=== PATIENT | female | born 1960 | race Caucasian/White ===

== ENCOUNTER → 2024-04-04 | Outpatient (CLI) | payer OTHER, SELFPAY ==
[2024-04-05 10:13] LABS: BVAG Candida Negative (Negative); Bacterial Vaginosis Markers Negative (Negative); Candida glabrata Positive (Negative); Candida krusei PCR Negative (Negative); Trichomonas Negative (Negative)
== END | disposition home or self-care (01) ==
LOC: SLDO 15:19
PROVIDERS: PCP Specialist; Referring Provider Specialist; Visit Provider Specialist
DX: B37.89 Other sites of candidiasis (principal); N76.0 Acute vaginitis; A59.01 Trichomonal vulvovaginitis
CPT/HCPCS: 81514

== ENCOUNTER 2024-04-10 17:57 | Emergency (ER) | payer OTHER, SELFPAY ==
[2024-04-10 17:58] VITALS: BMI 29.9
[2024-04-10 18:10] VITALS: BP 143/92; PULSE 78; RESP 18; TEMP 36.4; O2SAT 98; BMI 29.9
--- NOTE | 2024-04-10 18:23 | XR_ITS ---
Examination: PA lateral chest 2 views Technique: Upright PA lateral chest 2 views Exam date and time: April 10, 2024 1850 hrs. Comparison March 04, 2020 Indications: Coughing dizziness beginning one week ago. Findings: Normal heart size Lungs are clear. The osseous structures are intact Impression: No active disease
--- NOTE | 2024-04-10 18:24 | PD.EDRME ---
Rapid Medical Screening Exam RME Arrival date/time: 04/10/24 17:57 64-year-old female past medical history of hypertension presents emergency department complaining of bodyaches, fever, headache, and chills for 2 weeks. Chief Complaint: Flu Like Symptoms Time Seen by Provider: 04/10/24 18:06 Vital signs: Vital Signs Temperature 97.6 F 04/10/24 18:10 Pulse Rate 78 04/10/24 18:10 Respiratory Rate 18 04/10/24 18:10 Blood Pressure 143/92 H 04/10/24 18:10 Pulse Oximetry (%) 98 04/10/24 18:10 Oxygen Delivery Method Room Air 04/10/24 18:10 Vital signs reviewed by provider: Yes
[2024-04-10] MEDS: ACETAMINOPHEN 500 MG TABLET 1000 MG PO (18:32)
--- NOTE | 2024-04-10 18:59 | PD.EDURI ---
Upper Respiratory Inf. RME/HPI General Chief Complaint: Flu Like Symptoms Stated Complaint: BODYACHES, FEVER, CHILLS, SEVERE HEADACHE Time Seen by Provider: 04/10/24 18:06 Source: patient Arrival date/time: 04/10/24 17:57 64-year-old female past medical history of hypertension presents emergency department complaining of bodyaches, fever, headache, and chills for 2 weeks. Patient reports has completed 2 rounds of antibiotics for sinus infection with no improvement. Mode of arrival: ambulatory Limitations: no limitations RME / HPI RME / HPI Narrative: 04/10/24 17:57 64-year-old female past medical history of hypertension presents emergency department complaining of bodyaches, fever, headache, and chills for 2 weeks. Related Data Home Medications ?Medication ?Instructions ?Recorded ?Confirmed atorvastatin 10 mg tablet (Lipitor) 10 mg PO HS #0 tabs 05/21/16 12/23/20 metformin 500 mg tablet 500 mg PO BID 11/21/18 12/23/20 aripiprazole 15 mg tablet 7.5 mg PO QDAY 12/04/19 12/23/20 acyclovir 400 mg tablet 400 mg PO QDAY 10/23/20 12/23/20 amlodipine 5 mg tablet 5 mg PO QDAY 10/23/20 12/23/20 levothyroxine 112 mcg capsule 112 mcg PO QDAY 10/23/20 12/23/20 metoprolol succinate 50 mg 50 mg PO QDAY 10/23/20 12/23/20 tablet,extended release 24 hr oxybutynin chloride 10 mg 10 mg PO QDAY 10/23/20 12/23/20 tablet,extended release 24 hr topiramate 100 mg tablet 100 mg PO QDAY 10/23/20 12/23/20 Previous Rx's ?Medication ?Instructions ?Recorded metoclopramide HCl 10 mg tablet 10 mg PO Q6H PRN nausea and 04/11/20 (Reglan) vomiting #20 tabs meclizine 50 mg tablet (Antivert) 50 mg PO BID PRN dizziness #20 tabs 11/04/22 acetaminophen 500 mg capsule 500 mg PO Q6H PRN pain #30 caps 04/10/24 ibuprofen 600 mg tablet 600 mg PO Q8H PRN pain #20 tabs 04/10/24 Allergies Allergy/AdvReac Type Severity Reaction Status Date / Time codeine Allergy Severe HIVES Verified 04/10/24 18:01 Penicillins Allergy Severe HIVES Verified 04/10/24 18:01 Review of Systems Review of Systems Systems Reviewed: All systems reviewed, normal except as documented Constitutional Constitutional: Reports system reviewed and no additional complaints, except as documented, Reports body ache(s), Reports chills, Reports fever(s) and Reports headache(s) Eyes Eyes: Reports system reviewed and no additional complaints, except as documented and Denies change in vision ENT Ears, Nose, Mouth, and Throat: Reports system reviewed and no additional complaints, except as documented, Denies disequilibrium, Denies dizziness, Reports headache(s), Denies sore throat and Denies vertigo Cardiovascular Cardiovascular: Reports system reviewed and no additional complaints, except as documented, Denies chest pain and Denies dyspnea Respiratory Respiratory: Reports system reviewed and no additional complaints, except as documented, Denies chest congestion, Denies cough and Denies dyspnea Gastrointestinal Gastrointestinal: Reports system reviewed and no additional complaints, except as documented, Denies abdominal pain, Denies nausea and Denies vomiting Musculoskeletal Musculoskeletal: Reports system reviewed and no additional complaints, except as documented, Denies abnormal gait and Denies arthralgias Integumentary/Breasts Skin/Breast: Reports system reviewed and no additional complaints, except as documented, Denies erythema, Denies rash and Denies wounds Neurologic Neurologic: Reports system reviewed and no additional complaints, except as documented, Denies abnormal gait, Denies disequilibrium, Denies dizziness, Reports headache(s) and Denies vertigo ED Exam General Limitations: Present no limitations General appearance: Present alert and in no apparent distress Head Head exam: Present atraumatic Eye Eye exam: Present normal appearance, PERRL and EOMI ENT ENT exam: Present normal exam, normal oropharynx and mucous membranes moist Neck Neck exam: Present normal inspection, full ROM and trachea midline Chest Chest inspection: Present normal inspection and symmetric chest wall rise Respiratory Respiratory exam: Present normal lung sounds bilaterally Cardiovascular Cardiovascular exam: Present regular rate, normal rhythm and normal heart sounds Abdominal Exam Abdominal exam: Present soft and normal bowel sounds Extremities Exam Extremities exam: Present normal inspection and full ROM Back Exam Back exam: Present normal inspection and full ROM Neurological Exam Neurological exam: Present alert, oriented X3 and CN II-XII intact Psychiatric Psychiatric exam: Present normal affect and normal mood Skin Skin exam: Present warm, dry, intact and normal color Course Quality Measures none Orders Category Date Time Status Bedside COVID-19 Antigen Test NOW Care 04/10/24 18:23 Active Bedside Influenza A&B Antigen Test NOW Care 04/10/24 18:23 Completed XR chest 2V Stat Exams 04/10/24 18:23 Completed Acetaminophen Tab [Tylenol ES Tab] Med 04/10/24 18:24 Discontinued 1,000 mg PO X1 ONE Vital Signs Vital signs: Vital Signs Temperature 97.6 F 04/10/24 18:10 Pulse Rate 78 04/10/24 18:10 Respiratory Rate 18 04/10/24 18:10 Blood Pressure 143/92 H 04/10/24 18:10 Pulse Oximetry (%) 98 04/10/24 18:10 Oxygen Delivery Method Room Air 04/10/24 18:10 98% room air within normal limits Upper Respiratory Infection MDM Narrative MDM Narrative:: 64-year-old female past medical history of hypertension presents emergency department complaining of bodyaches, fever, headache, and chills for 2 weeks. Patient reports has completed 2 rounds of antibiotics for sinus infection with no improvement. Chest x-ray was unremarkable for any pneumonic infiltrates. Patient not appear to be in any respiratory distress and speaking in full sentences. Patient appears nontoxic and is hemodynamically stable. Influenza A&B positive which is likely cause of symptoms. Patient data External records reviewed:: [facility] previous records Clinical information provided by:: patient Social determinants that could affect healthcare access:: none Patient has the following chronic illnesses:: See chart How is presenting disease/condition affected by chronic disease/condition?: uneffected by Evaluation data The following diagnostics were reviewed and interpreted by me:: lab results and radiology exam(s) Lab and/or radiology exams considered but not ordered:: Ordered Interpretation Summary: Interpreted by me Medications / Prescriptions Medications or Prescriptions considered but not ordered:: Ordered Medication administrations:: Medication Administration History Discontinued Medications Acetaminophen (Acetaminophen 500 Mg Tablet) 1,000 mg PO X1 ONE Stop: 04/10/24 18:25 Last Admin: 04/10/24 18:32 Dose: 1,000 mg Documented By: given Consultations Consultation(s) initiated? (list below): No Diagnosis Upper Respiratory Differential Diagnosis: upper respiratory infection, otitis media, sinusitis, viral infection, bronchitis, influenza and pharyngitis Most likely diagnosis given after review of the tests above:: Influenza Admission Indicated Admission indicated?: not indicated Admission Request Was there a request for admission?: No Disposition Plan Disposition Plan: Discharge Discharge Attestation Discharge Attestation: The patient and all family members were given an opportunity to ask questions and understood the discharge instructions. Discharge instructions specifically effects, indications for sooner follow up or return to the emergency department, and the expected course of current diagnosis. Patient condition: Stable Discharge Plan Plan Patient Disposition: HOME (Self Care) Disposition Comment: Stable Prescriptions/Referrals Prescriptions/Med Rec: New ibuprofen 600 mg tablet 600 mg PO Q8H PRN (Reason: pain) Qty: 20 0RF acetaminophen 500 mg capsule 500 mg PO Q6H PRN (Reason: pain) Qty: 30 0RF No Action metoprolol succinate 50 mg tablet extended release 24 hr 50 mg PO QDAY acyclovir 400 mg tablet 400 mg PO QDAY levothyroxine 112 mcg capsule 112 mcg PO QDAY topiramate 100 mg tablet 100 mg PO QDAY amlodipine 5 mg tablet 5 mg PO QDAY oxybutynin chloride 10 mg tablet extended release 24hr 10 mg PO QDAY atorvastatin [Lipitor] 10 MG tablet 10 mg PO HS Qty: 0 metformin 500 mg Tablet 500 mg PO BID aripiprazole 15 mg tablet 7.5 mg PO QDAY metoclopramide HCl [Reglan] 10 mg tablet 10 mg PO Q6H PRN (Reason: nausea and vomiting) Qty: 20 0RF meclizine [Antivert] 50 mg tablet 50 mg PO BID PRN (Reason: dizziness) Qty: 20 0RF Referrals: Cameron Napier MD [Primary Care Provider] - In 1 week Problem List Clinical Impression: Influenza Patient/Caregiver Discharge Instructions Discharge Activity: activity as tolerated Education Materials: The Flu (Influenza), ED Influenza (Adult) Additional Instructions: Drink plenty of fluids and get plenty of rest. Take Tylenol or ibuprofen as needed for fever or pain. Follow-up with primary care provider in 2 to 3 days. Return to emergency department for any worsening symptoms or as needed. Print Language: Upper Sorbian Stand Alone Forms: Dana Award Info., Patient Portal Info Letter PA/BLEACH SUPERVISOR Supervising Physician PA/BLEACH SUPERVISOR Supervising Physician: Dr. Padilla
== END 2024-04-10 19:42 | disposition home or self-care (01) ==
PROVIDERS: Emergency Provider Emergency Medicine; PCP Internal Medicine
DX: J10.1 Influenza due to other identified influenza virus with other respiratory manifestations (principal); I10 Essential (primary) hypertension; Z88.5 Allergy status to narcotic agent
CPT/HCPCS: 71046; 87400; 87811; 99283; A9270

== ENCOUNTER 2024-04-12 23:48 | Emergency (ER) | payer OTHER, SELFPAY ==
[2024-04-12 23:49] VITALS: BMI 29.9
[2024-04-12 23:55] VITALS: BP 143/87; PULSE 74; RESP 19; TEMP 36.4; O2SAT 96
[2024-04-13] MEDS: HYDROcodone/APAP 5/325 TABLET 1 TAB PO (00:59)
[2024-04-13 01:02] LABS: Basophils % (Auto) 1 % (0-2.5); Eosinophils # (Auto) 0.1 Thou/mm3 (0.0-0.5); Eosinophils % (Auto) 1 % (0-10); Hematocrit 37.5 % (36.0-46.0); Hemoglobin 12.9 g/dL (12.0-16.0); Immature Granulocytes % (Auto) 0 % (0-0); Immature Granulocytes Auto 0.02 Thou/mm3 (0.00-0.00); Lymphocytes # (Auto) 2.2 Thou/mm3 (1.0-4.8); Lymphocytes % (Auto) 25 % (10-50); Mean Corpuscular HGB Conc 34.4 g/dl (31.0-37.0); Mean Corpuscular Hemoglobin 30.6 pg (25.0-35.0); Mean Corpuscular Volume 89 fL (80-100); Monocytes # (Auto) 0.4 Thou/mm3 (0.0-0.8); Monocytes % (Auto) 5 % (0-12); Neutrophils # (Auto) 5.9 Thou/mm3 (1.8-7.7); Neutrophils % (Auto) 68 % (37-80); Nucleated Red Blood Cell % 0 /100 WBC (0); Platelet Count 195 Thou/mm3 (140-440); RDW Standard Deviation 40.5 fL (36.4-46.3); Red Blood Count 4.22 Miln/mm3 (4.00-5.20); White Blood Count 8.7 Thou/mm3 (3.6-11.0)
[2024-04-13 01:18] LABS: Alanine Aminotransferase 10 U/L (10-49); Albumin, Serum 4.4 gm/dL (3.4-4.8); Albumin/Globulin Ratio 2.2 (1.2-2.2); Alkaline Phosphatase 93 U/L (46-116); Anion Gap 11 (7-16); Aspartate Amino Transferase 16 U/L (0-34); BUN/Creatinine Ratio 19 Ratio (12-20); Bilirubin,Total 0.5 mg/dL (0.3-1.2); Blood Urea Nitrogen 17 mg/dL (9-23); Calcium 9.1 mg/dL (8.3-10.6); Calcium (Corrected) 9.1 mg/dL (8.5-10.1); Carbon Dioxide 21.6 mMol/L (20.0-31.0); Chloride 104 mMol/L (98-107); Creatinine (Component) 0.9 mg/dL (0.6-1.3); Estimated Creatinine Clearance 65.8 mL/min (>60); Glucose 94 mg/dL (74-106); Osmolality,Calculated 275 (275-295); Potassium 3.9 mMol/L (3.4-5.1); Sodium 137 mMol/L (136-145); Total Protein 6.4 gm/dL (5.7-8.2); Troponin I < 0.002 ng/mL (0.0-0.045); eGFR > 60 See Note
--- NOTE | 2024-04-13 02:58 | PD.EDURI ---
Upper Respiratory Inf. RME/HPI General Chief Complaint: Flu Like Symptoms Stated Complaint: FLU +A&B, HIGH BLOOD PRESSURE Time Seen by Provider: 04/13/24 00:42 Arrival date/time: 04/12/24 23:48 64F with history of bipolar disorder, HTN, and hypothyroidism presents to ED with elevated BP readings and CP. Patient was here yesterday and tested positive for flu A/B. CXR was normal. Patient outside the window for Tamiflu. Limitations: no limitations Related Data Home Medications ?Medication ?Instructions ?Recorded ?Confirmed atorvastatin 10 mg tablet (Lipitor) 10 mg PO HS #0 tabs 05/21/16 12/23/20 metformin 500 mg tablet 500 mg PO BID 11/21/18 12/23/20 aripiprazole 15 mg tablet 7.5 mg PO QDAY 12/04/19 12/23/20 acyclovir 400 mg tablet 400 mg PO QDAY 10/23/20 12/23/20 amlodipine 5 mg tablet 5 mg PO QDAY 10/23/20 12/23/20 levothyroxine 112 mcg capsule 112 mcg PO QDAY 10/23/20 12/23/20 metoprolol succinate 50 mg 50 mg PO QDAY 10/23/20 12/23/20 tablet,extended release 24 hr oxybutynin chloride 10 mg 10 mg PO QDAY 10/23/20 12/23/20 tablet,extended release 24 hr topiramate 100 mg tablet 100 mg PO QDAY 10/23/20 12/23/20 Previous Rx's ?Medication ?Instructions ?Recorded metoclopramide HCl 10 mg tablet 10 mg PO Q6H PRN nausea and 04/11/20 (Reglan) vomiting #20 tabs meclizine 50 mg tablet (Antivert) 50 mg PO BID PRN dizziness #20 tabs 11/04/22 acetaminophen 500 mg capsule 500 mg PO Q6H PRN pain #30 caps 04/10/24 ibuprofen 600 mg tablet 600 mg PO Q8H PRN pain #20 tabs 04/10/24 Allergies Allergy/AdvReac Type Severity Reaction Status Date / Time codeine Allergy Severe HIVES Verified 04/10/24 18:01 Penicillins Allergy Severe HIVES Verified 04/10/24 18:01 Review of Systems Review of Systems Systems Reviewed: All systems reviewed, normal except as documented Constitutional Constitutional: Reports system reviewed and no additional complaints, except as documented, Denies fever(s) and Denies headache(s) ENT Ears, Nose, Mouth, and Throat: Denies disequilibrium and Denies headache(s) Cardiovascular Cardiovascular: Reports system reviewed and no additional complaints, except as documented, Reports as per HPI, Reports chest pain and Denies dyspnea Respiratory Respiratory: Reports system reviewed and no additional complaints, except as documented, Denies cough and Denies dyspnea Gastrointestinal Gastrointestinal: Reports system reviewed and no additional complaints, except as documented, Denies abdominal pain, Denies nausea and Denies vomiting Neurologic Neurologic: Reports system reviewed and no additional complaints, except as documented, Denies confusion, Denies disequilibrium and Denies headache(s) Psychiatric Psychiatric: Denies confusion Past Medical History Past Medical History NEUROLOGIC: Negative Neurological Disorders or Seizures CARDIAC: Positive Cardiac Disorders, Hypertension and Hypotension; Negative Congestive Heart Failure RESPIRATORY: Negative Chronic Obstructive Pulmonary Disease (COPD) or Asthma GASTROINTESTINAL: Positive Gastrointestinal Disorders and Gastrointestinal Bleed GENITOURINARY: Negative Genitourinary Disorders or Renal Disease MUSCULOSKELETAL: Negative Musculoskeletal Disorders ENDOCRINE: Positive Endocrine Disorders and Hypothyroidism; Negative Diabetes Mellitus Type 1 or Diabetes Mellitus Type 2 HEMATOLOGIC: Negative Blood Disorders or Sickle Cell Disease PSYCHO/SOCIAL: Positive Bipolar Disorder, Depression and Anxiety OTHER HISTORY: Positive Chicken Pox, Measles, Mumps and Rubella (Citizen Of [place] Measles); Negative Blood Transfusions, Blood Transfusion Reaction, Anesthesia Reactions or Cancer Family History FAMILY HISTORY: Positive Family Cancer; Negative Family Neurologic Problems, Family Psychiatric Problems, Family Respiratory Disorders, Family Cardiac Disorders, Family Gastrointestinal Problems, Family Surgery or Family Anesthesia Reaction Surgical History SURGICAL: Positive Ear Surgery, Eye Surgery, Nose Surgery, Gastric Bypass Surgery, Hysterectomy and Section Social History SMOKING STATUS: Never smoker SUBSTANCE USE: does not use ED Exam General Limitations: Present no limitations General appearance: Present alert and in no apparent distress Head Head exam: Present atraumatic Eye Eye exam: Present normal appearance, PERRL and EOMI ENT ENT exam: Present normal exam, normal oropharynx and mucous membranes moist Neck Neck exam: Present normal inspection, full ROM and trachea midline Chest Chest inspection: Present normal inspection and symmetric chest wall rise Respiratory Respiratory exam: Present normal lung sounds bilaterally Cardiovascular Cardiovascular exam: Present regular rate, normal rhythm and normal heart sounds Abdominal Exam Abdominal exam: Present soft and normal bowel sounds Extremities Exam Extremities exam: Present normal inspection and full ROM Back Exam Back exam: Present normal inspection and full ROM Neurological Exam Neurological exam: Present alert, oriented X3 and CN II-XII intact Psychiatric Psychiatric exam: Present normal affect and normal mood Skin Skin exam: Present warm, dry, intact and normal color Course Quality Measures none Orders Category Date Time Status EKG (ED ONLY) *Do not use* NOW Care 04/12/24 23:52 Completed EKG (ED Only) Stat Exams 04/12/24 23:51 Ordered CBC Stat Lab 04/13/24 00:51 Completed CMP [Comprehensive Metabolic Panel] Stat Lab 04/13/24 00:51 Completed Troponin I Stat Lab 04/13/24 00:51 Completed HYDROcodone*/APAP 5/325 [[place] 5/325] Med 04/13/24 00:43 Discontinued 1 tab PO X1 ONE Vital Signs Vital signs: Vital Signs Temperature 97.6 F 04/12/24 23:55 Pulse Rate 74 04/12/24 23:55 Respiratory Rate 19 04/12/24 23:55 Blood Pressure 143/87 H 04/12/24 23:55 Pulse Oximetry (%) 96 04/12/24 23:55 Oxygen Delivery Method Room Air 04/12/24 23:55 O2 at 96% on RA and WNLs Upper Respiratory Infection MDM Narrative MDM Narrative:: 64F with history of bipolar disorder, HTN, and hypothyroidism presents to ED with elevated BP readings and CP. Patient was here yesterday and tested positive for flu A/B. CXR was normal. Patient outside the window for Tamiflu. Physical exam reveals normal pupil response and EOM. Clear ENT and lungs. RRR. Patient is afebrile, calm, and alert. EKG is NSR. Normal trop. CMP and CBC unremarkable. Meds and student loan counselor given. Patient data External records reviewed:: [facility] previous records Clinical information provided by:: patient Social determinants that could affect healthcare access:: mental health Patient has the following chronic illnesses:: bipolar disorder, HTN, and hypothyroidism How is presenting disease/condition affected by chronic disease/condition?: exacerbated by Evaluation data The following diagnostics were reviewed and interpreted by me:: lab results and EKG tracing(s) Lab and/or radiology exams considered but not ordered:: ordered Interpretation Summary: above Medications / Prescriptions Medications or Prescriptions considered but not ordered:: ordered Medication administrations:: Medication Administration History Discontinued Medications Hydrocodone Bitart/Acetaminophen (Hydrocodone/[place] 5/325 Tablet) 1 tab PO X1 ONE Stop: 04/13/24 00:44 Last Admin: 04/13/24 00:59 Dose: 1 tab Documented By: above Consultations Consultation(s) initiated? (list below): No Diagnosis Upper Respiratory Differential Diagnosis: upper respiratory infection, croup, otitis media, sinusitis, viral infection, bronchitis, influenza, pharyngitis and other (ACS, PE) Most likely diagnosis given after review of the tests above:: flu Admission Indicated Admission indicated?: not indicated Admission Request Was there a request for admission?: No Disposition Plan Disposition Plan: Discharge Discharge Attestation Discharge Attestation: The patient and all family members were given an opportunity to ask questions and understood the discharge instructions. Discharge instructions specifically effects, indications for sooner follow up or return to the emergency department, and the expected course of current diagnosis. Patient condition: Stable Discharge Plan Plan Patient Disposition: HOME (Self Care) Disposition Comment: Stable Prescriptions/Referrals Prescriptions/Med Rec: No Action metoprolol succinate 50 mg tablet extended release 24 hr 50 mg PO QDAY acyclovir 400 mg tablet 400 mg PO QDAY levothyroxine 112 mcg capsule 112 mcg PO QDAY topiramate 100 mg tablet 100 mg PO QDAY amlodipine 5 mg tablet 5 mg PO QDAY oxybutynin chloride 10 mg tablet extended release 24hr 10 mg PO QDAY atorvastatin [Lipitor] 10 MG tablet 10 mg PO HS Qty: 0 metformin 500 mg Tablet 500 mg PO BID aripiprazole 15 mg tablet 7.5 mg PO QDAY metoclopramide HCl [Reglan] 10 mg tablet 10 mg PO Q6H PRN (Reason: nausea and vomiting) Qty: 20 0RF meclizine [Antivert] 50 mg tablet 50 mg PO BID PRN (Reason: dizziness) Qty: 20 0RF ibuprofen 600 mg tablet 600 mg PO Q8H PRN (Reason: pain) Qty: 20 0RF acetaminophen 500 mg capsule 500 mg PO Q6H PRN (Reason: pain) Qty: 30 0RF Problem List Clinical Impression: Influenza Patient/Caregiver Discharge Instructions Education Materials: ED Influenza (Adult) Additional Instructions: Please follow-up with PCP within 24-48 hours and return immediately if symptoms worsen. Ibuprofen/Tylenol can be used simultaneously for greater fever/pain control. Benadryl is good for cough, congestion, and sleep. Print Language: Maltese Stand Alone Forms: Patient Portal Info Letter PA/SHEET METAL HELPER Supervising Physician PA/SHEET METAL HELPER Supervising Physician: Dr. Celestin
== END 2024-04-13 01:37 | disposition home or self-care (01) ==
LOC: SERX 04-13 01:48
PROVIDERS: Physician Assistant; Emergency Provider Emergency Medicine
DX: J10.1 Influenza due to other identified influenza virus with other respiratory manifestations (principal); F31.9 Bipolar disorder, unspecified; I10 Essential (primary) hypertension; E03.9 Hypothyroidism, unspecified
CPT/HCPCS: 36415; 80053; 84484; 85025; 93005; 99283; A9270

== ENCOUNTER 2024-04-15 04:08 | Emergency (ER) | payer OTHER, SELFPAY ==
[2024-04-15] VITALS (8 sets, daily range): BP systolic 135–194; BP diastolic 77–112; PULSE 60–76; RESP 16–20; TEMP 36.5–37; O2SAT 96–100; BMI 29.9
--- NOTE | 2024-04-15 04:40 | EKG_ITS ---
[facility] Test Date: 2024-04-15 Pat Name: KELI MADRID Department: Room: - Gender: Female Pharmacy Benefits Coordinator: : 1960 Requested By: Dany Pérez Order Number: [id number] Reading MD: Dany Pérez Measurements Intervals [place] Rate: 63 P: 51 HI: 167 QRS: 50 QRSD: 82 T: 47 QT: 402 QTc: 413 Interpretive Statements SINUS RHYTHM Compared to ECG 04/13/2024 00:11:40 No significant changes /store/S0/[id number].pdf
--- NOTE | 2024-04-15 04:40 | XR_ITS ---
Examination: CT brain head without contrast. 2-D sagittal coronal reconstructions Date and time of exam: April 15, 2024 0611 hrs. Indications: Hypertension elevated blood pressure and headache today CTDI: vol (mGy):45.8 DLP: (mGycm):873 Technique: Multiple CT axial sections of the brain have been obtained, 5 mm slice thickness. Contrast has not been administered. 2-D sagittal, coronal reconstructions have been obtained Low dose protocols were performed. One or more of the following dose reduction techniques were used; automated exposure control, adjustment of the mA and/or KV according to patient size, use of iterative reconstruction technique. Findings: No significant ventricular enlargement. Intra-axial or extra-axial hemorrhage density is not seen. No mass effect or midline shift Basal cisterns are not remarkable. Fourth ventricle is midline. Cranial vault intact. Impression: Negative for acute hemorrhage, mass effect or midline shift
--- NOTE | 2024-04-15 04:50 | PD.EDRME ---
Rapid Medical Screening Exam RME Arrival date/time: 04/15/24 04:08 64-year-old female reports with complaints of elevated blood pressure reading dizziness and headache Chief Complaint: General Adult/Misc Complain Time Seen by Provider: 04/15/24 04:34 Vital signs: Vital Signs Temperature 97.7 F 04/15/24 04:19 Pulse Rate 72 04/15/24 04:19 Respiratory Rate 18 04/15/24 04:19 Blood Pressure 179/112 H 04/15/24 04:19 Pulse Oximetry (%) 98 04/15/24 04:19 Oxygen Delivery Method Room Air 04/15/24 04:19
[2024-04-15 05:59] LABS: Beta Hydroxybutyrate 0.3 mmol/L (<0.6)
[2024-04-15 06:33] LABS: Alanine Aminotransferase 10 U/L (10-49); Albumin, Serum 4.4 gm/dL (3.4-4.8); Albumin/Globulin Ratio 2.2 (1.2-2.2); Alkaline Phosphatase 87 U/L (46-116); Anion Gap 9 (7-16); Aspartate Amino Transferase 15 U/L (0-34); BUN/Creatinine Ratio 18 Ratio (12-20); Bilirubin,Total 0.6 mg/dL (0.3-1.2); Blood Urea Nitrogen 14 mg/dL (9-23); Carbon Dioxide 24.5 mMol/L (20.0-31.0); Chloride 108 mMol/L (98-107); Creatinine (Component) 0.8 mg/dL (0.6-1.3); Glucose 93 mg/dL (74-106); Osmolality,Calculated 281 (275-295); Potassium 4.2 mMol/L (3.4-5.1); Sodium 141 mMol/L (136-145); Total Protein 6.4 gm/dL (5.7-8.2); Troponin I < 0.002 ng/mL (0.0-0.045); eGFR > 60 See Note
[2024-04-15 06:47] LABS: Basophils # (Auto) 0.1 Thou/mm3 (0.0-0.2); Basophils % (Auto) 1 % (0-2.5); Eosinophils # (Auto) 0.2 Thou/mm3 (0.0-0.5); Eosinophils % (Auto) 3 % (0-10); Hematocrit 37.9 % (36.0-46.0); Hemoglobin 12.7 g/dL (12.0-16.0); Immature Granulocytes % (Auto) 0 % (0-0); Immature Granulocytes Auto 0.01 Thou/mm3 (0.00-0.00); Lymphocytes # (Auto) 2.1 Thou/mm3 (1.0-4.8); Lymphocytes % (Auto) 33 % (10-50); Mean Corpuscular HGB Conc 33.5 g/dl (31.0-37.0); Mean Corpuscular Hemoglobin 30.8 pg (25.0-35.0); Mean Corpuscular Volume 92 fL (80-100); Monocytes # (Auto) 0.4 Thou/mm3 (0.0-0.8); Monocytes % (Auto) 7 % (0-12); Neutrophils # (Auto) 3.5 Thou/mm3 (1.8-7.7); Neutrophils % (Auto) 56 % (37-80); Nucleated Red Blood Cell % 0 /100 WBC (0); Platelet Count 205 Thou/mm3 (140-440); RDW Standard Deviation 43.3 fL (36.4-46.3); Red Blood Count 4.12 Miln/mm3 (4.00-5.20); White Blood Count 6.4 Thou/mm3 (3.6-11.0)
--- NOTE | 2024-04-15 08:22 | PC.NURSE ---
PATIENT BROUGHT BACK TO ROOM FOR RECHECK OF VITALS. PATIENT SITTING IN WHEELCHAIR APPEARS TO BE ILL. PATIENT STATES SHE HAS HEAD, SHOULDER, NECK AND BACK PAIN. PATIENT STATES THAT SHE HAS FOLLOWED UP WITH PRIMARY CARE DOCTOR AND ADJUSTMENTS TO HIGH BLOOD PRESSURE MEDICATIONS HAS BEEN MADE OVER THE LAST WEEK WITH NO DIFFERENCE. PATIENT STATES SHE HAS VOMITING AND DIARRHEA AND UNABLE TO KEEP FLUID DOWN. PA MADE AWARE OF NURSING ASSESSMENT AND RECOMMEND THAT PATIENT BE SEEN ON MAIN SIDE.
--- NOTE | 2024-04-15 11:23 | PD.EDHA ---
ED Headache RME/HPI General Chief [facility] Compl[facility] Stated Complaint: FLU SYMPTOMS AND HTN Time Seen by Provider: 04/15/24 04:34 Arrival date/time: 04/15/24 04:08 RME / HPI RME / HPI Narrative: 04/15/24 04:08 64-year-old female reports with complaints of elevated blood pressure reading dizziness and headache DR. SEGURA MAIN ED EVALUATION: 64 year old female presents to the Emergency Department with complaints of headache, dizziness and light-headedness. Symptoms are moderate. She states her blood pressure has been high for the 1-2 weeks since she has been sick with flu symptoms. She was diagnosed 6 days ago with Influenza A and B and since has the following flu symptoms: cough, cold, sore throat, ear ache, headache, body aches, and dizziness. PMHx: Hypertension, hypercholesterolemia, hypothyroidism, and bipolar disorder. PSHx: Gastric Bypass Surgery, hysterectomy, section. Social Hx: No tobacco, alcohol, or substance use. Related Data Home Medications ?Medication ?Instructions ?Recorded ?Confirmed atorvastatin 10 mg tablet (Lipitor) 10 mg PO HS #0 tabs 05/21/16 12/23/20 metformin 500 mg tablet 500 mg PO BID 11/21/18 12/23/20 aripiprazole 15 mg tablet 7.5 mg PO QDAY 12/04/19 12/23/20 acyclovir 400 mg tablet 400 mg PO QDAY 10/23/20 12/23/20 amlodipine 5 mg tablet 5 mg PO QDAY 10/23/20 12/23/20 levothyroxine 112 mcg capsule 112 mcg PO QDAY 10/23/20 12/23/20 metoprolol succinate 50 mg 50 mg PO QDAY 10/23/20 12/23/20 tablet,extended release 24 hr oxybutynin chloride 10 mg 10 mg PO QDAY 10/23/20 12/23/20 tablet,extended release 24 hr topiramate 100 mg tablet 100 mg PO QDAY 10/23/20 12/23/20 Previous Rx's ?Medication ?Instructions ?Recorded metoclopramide HCl 10 mg tablet 10 mg PO Q6H PRN nausea and 04/11/20 (Reglan) vomiting #20 tabs meclizine 50 mg tablet (Antivert) 50 mg PO BID PRN dizziness #20 tabs 11/04/22 acetaminophen 500 mg capsule 500 mg PO Q6H PRN pain #30 caps 04/10/24 ibuprofen 600 mg tablet 600 mg PO Q8H PRN pain #20 tabs 04/10/24 Allergies Allergy/AdvReac Type Severity Reaction Status Date / Time codeine Allergy Severe HIVES Verified 04/15/24 04:11 Penicillins Allergy Severe HIVES Verified 04/15/24 04:11 Review of Systems Review of Systems Systems Reviewed: All systems reviewed, normal except as documented Narrative Review of Systems: GEN: No fever, no chills, no weight loss EYES: No discharge, no visual changes, no pain HEENT: + ear pain, + congestion, + sore throat PULM: No shortness of breath, + cough, + congestion CV: No chest pain, no dyspnea on exertion, no palpitations GI: No nausea, no vomiting, no diarrhea, no pain, no constipation : No frequency, no urgency and no dysuria MUSC/SKEL: + body aches, no back pain SKIN: No rash PSYCH: No hallucinations, no depression HEME/LYMPH: No easy bleeding or bruising tendencies NEURO: No weakness, + headache, + dizziness and light-headedness Past Medical History Past Medical History CARDIAC: Positive Cardiac Disorders, Hypertension and Hypotension GASTROINTESTINAL: Positive Gastrointestinal Disorders and Gastrointestinal Bleed ENDOCRINE: Positive Endocrine Disorders and Hypothyroidism PSYCHO/SOCIAL: Positive Bipolar Disorder, Depression and Anxiety OTHER HISTORY: Positive Chicken Pox, Measles, Mumps and Rubella (Kyrgyz Measles) Family History FAMILY HISTORY: Positive Family Cancer Surgical History SURGICAL: Positive Ear Surgery, Eye Surgery, Nose Surgery, Gastric Bypass Surgery, Hysterectomy and Section Social History SMOKING STATUS: Never smoker SUBSTANCE USE: does not use ALCOHOL: Never ED Exam Narrative Physical exam: GENERAL APPEARANCE: AxOx4, generally well-appearing, no acute distress. HEENT: NC, AT. MMM. EOMI, clear conjunctiva, oropharynx clear. NECK: Supple without lymphadenopathy. No stiffness or restricted ROM. HEART: Normal rate and regular rhythm, normal S1/S1, no m/r/g LUNGS: CTAB, moving air well. No crackles or wheezes are heard. ABDOMEN: Soft, nontender, nondistended with good bowel sounds heard. BACK: No midline C/T/L spine pain or deformity, No CVAT, no obvious deformity. EXTREMITIES: Without cyanosis, clubbing or edema. MUSCULOSKELETAL: FROM of all major joints, no chest tenderness NEUROLOGICAL: Grossly nonfocal. Alert and oriented, moving all 4 extremities. CN not formally tested but appear grossly intact. Observed to ambulate with normal gait. Skin: Warm and dry without any rash. Course Quality Measures none Orders Category Date Time Status EKG (ED ONLY) *Do not use* NOW Care 04/15/24 04:[address] head/brain wo con Stat Exams 04/15/24 04:40 Completed EKG (ED Only) Stat Exams 04/15/24 04:40 Draft Beta Hydroxybutyrate Stat Lab 04/15/24 05:45 Completed CBC Stat Lab 04/15/24 05:45 Completed CMP [Comprehensive Metabolic Panel] Stat Lab 04/15/24 05:45 Completed Troponin I Stat Lab 04/15/24 05:45 Completed Ketorolac Inj [Toradol Inj] Med 04/15/24 12:19 Discontinued 15 mg IVP X1 ONE Metoclopramide Inj [Reglan Inj] Med 04/15/24 12:19 Discontinued 10 mg IVP X1 ONE Sodium Chloride 0.9% 1000 ml [Ns] 1,000 ml Med 04/15/24 12:19 Discontinued IV 999 mls/hr Vital Signs Vital signs: Vital Signs Temperature 97.7 F 04/15/24 04:19 Pulse Rate 72 04/15/24 04:19 Respiratory Rate 18 04/15/24 04:19 Blood Pressure 179/112 H 04/15/24 04:19 Pulse Oximetry (%) 98 04/15/24 04:19 Oxygen Delivery Method Room Air 04/15/24 04:19 Procedures -ED EKG Interpretation #1: Date of EK04/15/24 Time of EK:42 Rate: 63 Interpretation: Interpreted by me Additional EKG comment: sinus rhythm, rate 63, normal intervals, normal axis, no acute ST-T wave changes. Headache MDM Narrative MDM Narrative:: I, Jennifer Pablo am scribing for and in the presence of Dr. Segura. Patient data External records reviewed:: [facility] previous records (Reviewed last ED visit dated 04/13/24, discharged with the following: Influenza) Clinical information provided by:: patient Social determinants that could affect healthcare access:: none Patient has the following chronic illnesses:: PMHx: Hypertension, hypercholesterolemia, hypothyroidism, and bipolar disorder. PSHx: Gastric Bypass Surgery, hysterectomy, section. How is presenting disease/condition affected by chronic disease/condition?: exacerbated by Evaluation data The following diagnostics were reviewed and interpreted by me:: lab results, radiology exam(s) and EKG tracing(s) Lab and/or radiology exams considered but not ordered:: none Interpretation Summary: Procedure(s): CT head/brain wo con Accession Number(s): [id number] cc: Valeriano Porter MD; Cameron Napier MD; Dany Pérez PA-C~ Examination: CT brain head without contrast. 2-D sagittal coronal reconstructions Date and time of exam: April 15, 2024 0611 hrs. Indications: Hypertension elevated blood pressure and headache today CTDI: vol (mGy):45.8 DLP: (mGycm):873 Technique: Multiple CT axial sections of the brain have been obtained, 5 mm slice thickness. Contrast has not been administered. 2-D sagittal, coronal reconstructions have been obtained Low dose protocols were performed. One or more of the following dose reduction techniques were used; automated exposure control, adjustment of the mA and/or KV according to patient size, use of iterative reconstruction technique. Findings: No significant ventricular enlargement. Intra-axial or extra-axial hemorrhage density is not seen. No mass effect or midline shift Basal cisterns are not remarkable. Fourth ventricle is midline. Cranial vault intact. Impression: Negative for acute hemorrhage, mass effect or midline shift Dictated By: Valeriano Porter MD Medications / Prescriptions Medications or Prescriptions considered but not ordered:: none Medication administrations:: Medication Administration History Discontinued Medications Sodium Chloride (Ns) 1,000 mls @ 999 mls/hr IV .Q1H1M ONE Stop: 04/15/24 13:19 Last Admin: 04/15/24 12:54 Dose: 999 mls/hr Documented By: VG Ketorolac Tromethamine (Ketorolac Inj 30 Mg/Ml Vial) 15 mg IVP X1 ONE Stop: 04/15/24 12:20 Last Admin: 04/15/24 12:55 Dose: 15 mg Documented By: VG Metoclopramide HCl (Metoclopramide Inj 5 Mg/Ml Vial 2 Ml) 10 mg IVP X1 ONE; Protocol Stop: 04/15/24 12:20 Last Admin: 03/02/25 12:56 Dose: 10 mg Documented By: JORGITO see above if any Consultations Consultation(s) initiated? (list below): No Diagnosis Differential diagnosis headache: migraine, tension headache, headache and other (hypertensive emergency vs urgency) Most likely diagnosis given after review of the tests above:: Influenza Headache Admission Indicated Admission indicated?: not indicated Admission Request Was there a request for admission?: No Disposition Plan Disposition Plan: Discharge Discharge Attestation Discharge Attestation: The patient and all family members were given an opportunity to ask questions and understood the discharge instructions. Discharge instructions specifically effects, indications for sooner follow up or return to the emergency department, and the expected course of current diagnosis. Patient condition: Stable Discharge Plan Plan Patient Disposition: HOME (Self Care) Prescriptions/Referrals Prescriptions/Med Rec: No Action metoprolol succinate 50 mg tablet extended release 24 hr 50 mg PO QDAY acyclovir 400 mg tablet 400 mg PO QDAY levothyroxine 112 mcg capsule 112 mcg PO QDAY topiramate 100 mg tablet 100 mg PO QDAY amlodipine 5 mg tablet 5 mg PO QDAY oxybutynin chloride 10 mg tablet extended release 24hr 10 mg PO QDAY atorvastatin [Lipitor] 10 MG tablet 10 mg PO HS Qty: 0 metformin 500 mg Tablet 500 mg PO BID aripiprazole 15 mg tablet 7.5 mg PO QDAY metoclopramide HCl [Reglan] 10 mg tablet 10 mg PO Q6H PRN (Reason: nausea and vomiting) Qty: 20 0RF meclizine [Antivert] 50 mg tablet 50 mg PO BID PRN (Reason: dizziness) Qty: 20 0RF ibuprofen 600 mg tablet 600 mg PO Q8H PRN (Reason: pain) Qty: 20 0RF acetaminophen 500 mg capsule 500 mg PO Q6H PRN (Reason: pain) Qty: 30 0RF Referrals: Cameron Napier MD [Primary Care Provider] - In 1 week Problem List Clinical Impression: Influenza, Headache Patient/Caregiver Discharge Instructions Education Materials: Self-Care for Headaches, ED Influenza (Adult) Additional Instructions: Drink plenty of fluids (i.e. water, teas, soups) to help nurse your flu symptoms. You can take over the counter ibuprofen and/or acetaminophen as needed for fevers and pain. Follow-up your primary doctor in 2-3 days for recheck. You can return to the emergency department sooner if symptoms worsen or for any new or concerning issues. Print Language: Serbian Stand Alone Forms: Dana Award Info., Patient Portal Info Letter
[2024-04-15] MEDS: SODIUM CHLORIDE 0.9% 1000 ML 1,000 ML 999 ML IV (12:54)
[2024-04-15] MEDS: KETOROLAC INJ 30 MG/ML VIAL 15 MG IVP (12:55)
[2024-04-15] MEDS: METOCLOPRAMIDE INJ 5 MG/ML VIAL 2 ML 10 MG IVP (12:56)
== END 2024-04-15 15:15 | disposition home or self-care (01) ==
PROVIDERS: Physician Assistant; Emergency Provider Emergency Medicine; PCP Internal Medicine
DX: J11.1 Influenza due to unidentified influenza virus with other respiratory manifestations (principal); R51.9 Headache, unspecified
CPT/HCPCS: 36415; 70450; 80053; 82010; 84484; 85025; 93005; 96361; 96374; 96375; 99284; J1885; J2765; J7030

== ENCOUNTER 2024-04-17 21:04 | Emergency (ER) | payer OTHER, SELFPAY ==
[2024-04-17 21:06] VITALS: BP 157/99; PULSE 60; RESP 20; TEMP 36.8; O2SAT 99
[2024-04-17 21:18] VITALS: PULSE 75; RESP 17; O2SAT 99
[2024-04-17 21:22] VITALS: BMI 29.9
--- NOTE | 2024-04-17 21:23 | PD.EDWEAK ---
ED Weakness RME/HPI General Chief complaint: Weakness Stated complaint: WEAKNESS Time Seen by Provider: 04/17/24 21:26 Source: patient and EMS Arrival date/time: 04/17/24 21:04 Mode of arrival: EMS Limitations: no limitations RME / HPI RME / HPI Narrative: Dr. Louis?s Main ED Evaluation: 64-year-old female, brought in by ambulance, presents to the ED with a worsening headache, which she describes as more severe than her baseline sinus headaches and muscle pain. The patient previously tested positive for influenza A and B on 04/10 and has had multiple return visits on 04/13 and 04/15 due to persistent flu-like symptoms. Despite prior treatment, she reports no improvement in her condition. Today, she endorses lightheadedness, nausea, vomiting, diarrhea, dizziness, weakness, and cough, as well as increased thirst. She is up to date on her flu vaccination but had known exposure to a sick contact with the flu. Her past medical history includes bipolar disorder, hypertension, and allergies. She last took ibuprofen at 16:00 and acetaminophen at 20:00. Related Data Home Medications ?Medication ?Instructions ?Recorded ?Confirmed atorvastatin 10 mg tablet (Lipitor) 10 mg PO HS #0 tabs 05/21/16 12/23/20 metformin 500 mg tablet 500 mg PO BID 11/21/18 12/23/20 aripiprazole 15 mg tablet 7.5 mg PO QDAY 12/04/19 12/23/20 acyclovir 400 mg tablet 400 mg PO QDAY 10/23/20 12/23/20 amlodipine 5 mg tablet 5 mg PO QDAY 10/23/20 12/23/20 levothyroxine 112 mcg capsule 112 mcg PO QDAY 10/23/20 12/23/20 metoprolol succinate 50 mg 50 mg PO QDAY 10/23/20 12/23/20 tablet,extended release 24 hr oxybutynin chloride 10 mg 10 mg PO QDAY 10/23/20 12/23/20 tablet,extended release 24 hr topiramate 100 mg tablet 100 mg PO QDAY 10/23/20 12/23/20 Previous Rx's ?Medication ?Instructions ?Recorded metoclopramide HCl 10 mg tablet 10 mg PO Q6H PRN nausea and 04/11/20 (Reglan) vomiting #20 tabs meclizine 50 mg tablet (Antivert) 50 mg PO BID PRN dizziness #20 tabs 11/04/22 acetaminophen 500 mg capsule 500 mg PO Q6H PRN pain #30 caps 04/10/24 ibuprofen 600 mg tablet 600 mg PO Q8H PRN pain #20 tabs 04/10/24 guaifenesin 200 mg/5 mL oral liquid 400 mg (10 mL) PO Q6H PRN cough 04/18/24 #118 mL Allergies Allergy/AdvReac Type Severity Reaction Status Date / Time codeine Allergy Severe HIVES Verified 04/17/24 21:23 Penicillins Allergy Severe HIVES Verified 04/17/24 21:23 Review of Systems Review of Systems Systems Reviewed: All systems reviewed, normal except as documented Past Medical History Past Medical History NEUROLOGIC: Negative Neurological Disorders or Seizures CARDIAC: Positive Cardiac Disorders, Hypertension and Hypotension; Negative Congestive Heart Failure RESPIRATORY: Negative Chronic Obstructive Pulmonary Disease (COPD) or Asthma GASTROINTESTINAL: Positive Gastrointestinal Disorders and Gastrointestinal Bleed GENITOURINARY: Negative Genitourinary Disorders or Renal Disease MUSCULOSKELETAL: Negative Musculoskeletal Disorders ENDOCRINE: Positive Endocrine Disorders and Hypothyroidism; Negative Diabetes Mellitus Type 1 or Diabetes Mellitus Type 2 HEMATOLOGIC: Negative Blood Disorders or Sickle Cell Disease PSYCHO/SOCIAL: Positive Bipolar Disorder, Depression and Anxiety OTHER HISTORY: Positive Chicken Pox, Measles, Mumps and Rubella (Bangladeshi Measles); Negative Blood Transfusions, Blood Transfusion Reaction, Anesthesia Reactions or Cancer Family History FAMILY HISTORY: Positive Family Cancer; Negative Family Neurologic Problems, Family Psychiatric Problems, Family Respiratory Disorders, Family Cardiac Disorders, Family Gastrointestinal Problems, Family Surgery or Family Anesthesia Reaction Surgical History SURGICAL: Positive Ear Surgery, Eye Surgery, Nose Surgery, Gastric Bypass Surgery, Hysterectomy and Section Social History SMOKING STATUS: Never smoker SUBSTANCE USE: does not use ED Exam Narrative Physical exam: GENERAL APPEARANCE: alert and oriented x 4, well-developed, well-nourished, no acute distress VITALS: All vitals were reviewed and the pulse ox is 99% on room air, which is normal according to my interpretation. HEENT: Normocephalic, atraumatic; pupils equal, round, reactive to light; EOMI; mucous membranes pink, moist; oropharynx clear NECK: Supple LUNGS: CTABL; no wheezes, no rales, no rhonchi HEART: Regular rate, regular rhythm; normal S1, S2; no murmurs ABDOMEN: non distended; normal BS; soft, no tenderness, no guarding, no rebound; no masses, no organomegaly, no hernia BACK: no CVA tenderness EXTREMITIES: atraumatic; no edema NEUROLOGIC: awake; alert and oriented x4; cranial nerves II-XII grossly intact; no focal sensory or motor deficits PSYCHIATRIC: appropriate mood and affect SKIN: warm, dry, normal color; no rashes General Limitations: Present no limitations Course Quality Measures none Orders Category Date Time Status CBC Stat Lab 04/17/24 21:52 Completed CMP [Comprehensive Metabolic Panel] Stat Lab 04/17/24 21:52 Completed Magnesium Stat Lab 04/17/24 21:52 Completed Ketorolac Inj [Toradol Inj] Med 04/17/24 21:43 Discontinued 30 mg IVP X1 ONE Ondansetron Inj [Zofran Inj] Med 04/17/24 21:43 Discontinued 4 mg IV X1 ONE Sodium Chloride 0.9% 1000 ml [Ns] 1,000 ml Med 04/17/24 21:43 Discontinued IV 999 mls/hr Vital Signs Vital signs: Vital Signs Temperature 98.2 F 04/17/24 21:06 Pulse Rate 60 04/17/24 21:06 Respiratory Rate 20 04/17/24 21:06 Blood Pressure 157/99 H 04/17/24 21:06 Pulse Oximetry (%) 99 04/17/24 21:06 Oxygen Delivery Method Room Air 04/17/24 21:06 Weakness MDM Narrative MDM Narrative:: Scribe Attestation: ITrevin am scribing for and in the presence of Dr. Louis. Provider Notation: Although this document has been carefully reviewed, there may still be some phonetic and other typographical errors. These errors are purely grammatical due to imperfections in the software program and should not be construed in any way to compromise the substance of the patient's medical care during this visit. Patient data External records reviewed:: [facility] previous records and EMS form Clinical information provided by:: patient and EMS Social determinants that could affect healthcare access:: none Patient has the following chronic illnesses:: see PMH How is presenting disease/condition affected by chronic disease/condition?: uneffected by Evaluation data The following diagnostics were reviewed and interpreted by me:: lab results and radiology exam(s) Lab and/or radiology exams considered but not ordered:: na Interpretation Summary: CBC is normal, CMP is normal, Magnesium is normal, according to my interpretation. Medications / Prescriptions Medications or Prescriptions considered but not ordered:: na Medication administrations:: Medication Administration History Discontinued Medications Sodium Chloride (Ns) 1,000 mls @ 999 mls/hr IV .Q1H1M ONE Stop: 04/17/24 22:43 Last Infusion: 04/17/24 23:00 Dose: Infused Documented By: Admin: 04/17/24 21:58 Dose: 999 mls/hr Documented By: KG Ketorolac Tromethamine (Ketorolac Inj 30 Mg/Ml Vial) 30 mg IVP X1 ONE Stop: 04/17/24 21:44 Last Admin: 04/17/24 22:00 Dose: 30 mg Documented By: KG Ondansetron HCl (Ondansetron Inj 2 Mg/Ml Inj 2 Ml) 4 mg IV X1 ONE; Protocol Stop: 04/17/24 21:44 Last Admin: 04/17/24 21:59 Dose: 4 mg Documented By: KG as above, if any Consultations Consultation(s) initiated? (list below): No Diagnosis Weakness Differential Diagnosis: other (Influenza vs COVID vs Pneumonia vs Sepsis) Most likely diagnosis given after review of the tests above:: see below Admission Indicated Admission indicated?: not indicated Admission Request Was there a request for admission?: No Disposition Plan Disposition Plan: Discharge Discharge Attestation Discharge Attestation: The patient and all family members were given an opportunity to ask questions and understood the discharge instructions. Discharge instructions specifically effects, indications for sooner follow up or return to the emergency department, and the expected course of current diagnosis. Patient condition: Stable Discharge Plan Plan Patient Disposition: HOME (Self Care) Disposition Comment: Stable for discharge home Patient condition on transfer: Stable Prescriptions/Referrals Prescriptions/Med Rec: New guaifenesin 200 mg/5 mL liquid 400 mg PO Q6H PRN (Reason: cough) Qty: 118 0RF No Action metoprolol succinate 50 mg tablet extended release 24 hr 50 mg PO QDAY acyclovir 400 mg tablet 400 mg PO QDAY levothyroxine 112 mcg capsule 112 mcg PO QDAY topiramate 100 mg tablet 100 mg PO QDAY amlodipine 5 mg tablet 5 mg PO QDAY oxybutynin chloride 10 mg tablet extended release 24hr 10 mg PO QDAY atorvastatin [Lipitor] 10 MG tablet 10 mg PO HS Qty: 0 metformin 500 mg Tablet 500 mg PO BID aripiprazole 15 mg tablet 7.5 mg PO QDAY metoclopramide HCl [Reglan] 10 mg tablet 10 mg PO Q6H PRN (Reason: nausea and vomiting) Qty: 20 0RF meclizine [Antivert] 50 mg tablet 50 mg PO BID PRN (Reason: dizziness) Qty: 20 0RF ibuprofen 600 mg tablet 600 mg PO Q8H PRN (Reason: pain) Qty: 20 0RF acetaminophen 500 mg capsule 500 mg PO Q6H PRN (Reason: pain) Qty: 30 0RF Referrals: Cameron Napier MD [Primary Care Provider] - In 1 week Problem List Clinical Impression: Influenza A, Headache, Influenza B, Myalgia Patient/Caregiver Discharge Instructions Discharge Activity: activity as tolerated Education Materials: Self-Care for Headaches, Preventing Common Respiratory ..., The Flu (Influenza), ED Influenza (Adult), ED Myalgias Additional Instructions: Please return to the emergency department if you have any worsening or you are not feeling better within 48 hours and we will help you. Otherwise you should follow-up with Dr. Napier within the next several days. Print Language: Guyanese Stand Alone Forms: Dana Award Info., Patient Portal Info Letter
[2024-04-17] MEDS: SODIUM CHLORIDE 0.9% 1000 ML 1,000 ML 999 ML IV (21:58)
[2024-04-17] MEDS: ONDANSETRON INJ 2 MG/ML INJ 2 ML 4 MG IV (21:59)
[2024-04-17 22:00] VITALS: BP 174/99; PULSE 64; RESP 18; TEMP 36.5; O2SAT 98
[2024-04-17] MEDS: KETOROLAC INJ 30 MG/ML VIAL IVP (22:00)
[2024-04-17 22:03] LABS: Basophils % (Auto) 1 % (0-2.5); Eosinophils # (Auto) 0.2 Thou/mm3 (0.0-0.5); Eosinophils % (Auto) 3 % (0-10); Hematocrit 35.1 % (36.0-46.0); Hemoglobin 11.9 g/dL (12.0-16.0); Immature Granulocytes % (Auto) 0 % (0-0); Immature Granulocytes Auto 0.01 Thou/mm3 (0.00-0.00); Lymphocytes # (Auto) 1.8 Thou/mm3 (1.0-4.8); Lymphocytes % (Auto) 30 % (10-50); Mean Corpuscular HGB Conc 33.9 g/dl (31.0-37.0); Mean Corpuscular Hemoglobin 30.7 pg (25.0-35.0); Mean Corpuscular Volume 91 fL (80-100); Monocytes # (Auto) 0.4 Thou/mm3 (0.0-0.8); Monocytes % (Auto) 7 % (0-12); Neutrophils # (Auto) 3.7 Thou/mm3 (1.8-7.7); Neutrophils % (Auto) 60 % (37-80); Nucleated Red Blood Cell % 0 /100 WBC (0); Platelet Count 171 Thou/mm3 (140-440); RDW Standard Deviation 41.1 fL (36.4-46.3); Red Blood Count 3.87 Miln/mm3 (4.00-5.20); White Blood Count 6.1 Thou/mm3 (3.6-11.0)
[2024-04-17 22:23] LABS: Anion Gap 9 (7-16); Blood Urea Nitrogen 12 mg/dL (9-23); Carbon Dioxide 24.9 mMol/L (20.0-31.0); Chloride 103 mMol/L (98-107); Creatinine (Component) 0.9 mg/dL (0.6-1.3); Potassium 4.2 mMol/L (3.4-5.1); Sodium 137 mMol/L (136-145)
[2024-04-17 22:24] LABS: Alanine Aminotransferase 11 U/L (10-49); Albumin, Serum 3.8 gm/dL (3.4-4.8); Albumin/Globulin Ratio 1.9 (1.2-2.2); Alkaline Phosphatase 82 U/L (46-116); Aspartate Amino Transferase 17 U/L (0-34); BUN/Creatinine Ratio 13 Ratio (12-20); Bilirubin,Total 0.5 mg/dL (0.3-1.2); Calcium 8.5 mg/dL (8.3-10.6); Calcium (Corrected) 8.7 mg/dL (8.5-10.1); Estimated Creatinine Clearance 65.8 mL/min (>60); Glucose 94 mg/dL (74-106); Magnesium 1.9 mg/dL (1.6-2.6); Osmolality,Calculated 273 (275-295); Total Protein 5.8 gm/dL (5.7-8.2); eGFR > 60 See Note
[2024-04-17 23:05] VITALS: BP 161/90; PULSE 63; RESP 18; O2SAT 97
[2024-04-18 00:25] VITALS: BP 170/92; PULSE 63; RESP 19; TEMP 36.5; O2SAT 95
--- NOTE | 2024-04-18 00:26 | PC.NURSE ---
allen care completed. purewick in place.
[2024-04-18 01:20] VITALS: BP 149/71; PULSE 61; RESP 19; O2SAT 96
== END 2024-04-18 01:21 | disposition home or self-care (01) ==
PROVIDERS: Emergency Provider Emergency Medicine; PCP Internal Medicine
DX: J10.1 Influenza due to other identified influenza virus with other respiratory manifestations (principal)
CPT/HCPCS: 36415; 80053; 83735; 85025; 96361; 96374; 96375; 99284; J1885; J2405; J7030

== ENCOUNTER → 2024-04-23 | Outpatient (CLI) | payer OTHER, SELFPAY ==
[2024-04-23 10:01] LABS: Alanine Aminotransferase 12 U/L (10-49); Albumin, Serum 4.6 gm/dL (3.4-4.8); Albumin/Globulin Ratio 2.4 (1.2-2.2); Alkaline Phosphatase 94 U/L (46-116); Anion Gap 9 (7-16); Aspartate Amino Transferase 11 U/L (0-34); BUN/Creatinine Ratio 16 Ratio (12-20); Bilirubin,Total 0.8 mg/dL (0.3-1.2); Blood Urea Nitrogen 16 mg/dL (9-23); Calcium 9.2 mg/dL (8.3-10.6); Calcium (Corrected) 9.2 mg/dL (8.5-10.1); Carbon Dioxide 25.4 mMol/L (20.0-31.0); Cardiac Risk Estimate 2.5 RATIO (3.7-5.6); Chloride 99 mMol/L (98-107); Cholesterol 156 mg/dL (132-200); Globulin 1.9 gm/dL (2.3-3.5); Glucose 89 mg/dL (74-106); HDL Cholesterol 63 mg/dL (40-60); LDL Cholesterol,Calculated 65 mg/dL (0-130); Osmolality,Calculated 266 (275-295); Potassium 4.8 mMol/L (3.4-5.1); Sodium 133 mMol/L (136-145); Total Protein 6.5 gm/dL (5.7-8.2); Triglycerides 142 mg/dL (30-150); eGFR > 60 See Note
== END | disposition home or self-care (01) ==
LOC: COPL 07:54
PROVIDERS: PCP Internal Medicine; Referring Provider Internal Medicine; Visit Provider Internal Medicine
DX: E78.5 Hyperlipidemia, unspecified (principal); I10 Essential (primary) hypertension
CPT/HCPCS: 36415; 80053; 80061

== ENCOUNTER 2024-05-04 00:29 | Emergency (ER) | payer OTHER, SELFPAY ==
[2024-05-04 00:30] VITALS: BMI 29.9
[2024-05-04 00:41] VITALS: BP 139/83; PULSE 73; RESP 18; TEMP 36.6; O2SAT 98
--- NOTE | 2024-05-04 00:53 | XR_ITS ---
Examination: AP chest single view TECHNIQUE: AP portable upright chest single view Exam date and time: May 04, 2024, 0017 hours Comparison April 10, 2024 INDICATIONS: Coughing today FINDINGS: Normal heart size. Lungs are clear. Osseous structures are intact IMPRESSION: No active disease
--- NOTE | 2024-05-04 00:53 | EKG_ITS ---
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
[2024-05-04 01:11] LABS: Basophils # (Auto) 0.1 Thou/mm3 (0.0-0.2); Basophils % (Auto) 1 % (0-2.5); Eosinophils # (Auto) 0.2 Thou/mm3 (0.0-0.5); Eosinophils % (Auto) 4 % (0-10); Hematocrit 33.5 % (36.0-46.0); Hemoglobin 11.5 g/dL (12.0-16.0); Immature Granulocytes % (Auto) 0 % (0-0); Immature Granulocytes Auto 0.01 Thou/mm3 (0.00-0.00); Lymphocytes # (Auto) 1.9 Thou/mm3 (1.0-4.8); Lymphocytes % (Auto) 32 % (10-50); Mean Corpuscular HGB Conc 34.3 g/dl (31.0-37.0); Mean Corpuscular Hemoglobin 31.2 pg (25.0-35.0); Mean Corpuscular Volume 91 fL (80-100); Monocytes # (Auto) 0.5 Thou/mm3 (0.0-0.8); Monocytes % (Auto) 8 % (0-12); Neutrophils # (Auto) 3.3 Thou/mm3 (1.8-7.7); Neutrophils % (Auto) 55 % (37-80); Nucleated Red Blood Cell % 0 /100 WBC (0); Platelet Count 190 Thou/mm3 (140-440); RDW Standard Deviation 41.4 fL (36.4-46.3); Red Blood Count 3.69 Miln/mm3 (4.00-5.20); White Blood Count 5.9 Thou/mm3 (3.6-11.0)
[2024-05-04] MEDS: KETOROLAC INJ 60 MG/2 ML VIAL 30 MG IM (01:16)
[2024-05-04] MEDS: ONDANSETRON ODT 4 MG TABRAP PO (01:16)
[2024-05-04 01:29] LABS: Alanine Aminotransferase 11 U/L (10-49); Albumin, Serum 4.1 gm/dL (3.4-4.8); Albumin/Globulin Ratio 2.2 (1.2-2.2); Alkaline Phosphatase 78 U/L (46-116); Anion Gap 7 (7-16); Aspartate Amino Transferase 15 U/L (0-34); BUN/Creatinine Ratio 15 Ratio (12-20); Bilirubin,Total 0.4 mg/dL (0.3-1.2); Blood Urea Nitrogen 17 mg/dL (9-23); Calcium 8.3 mg/dL (8.3-10.6); Calcium (Corrected) 8.3 mg/dL (8.5-10.1); Carbon Dioxide 24.2 mMol/L (20.0-31.0); Chloride 101 mMol/L (98-107); Creatinine (Component) 1.1 mg/dL (0.6-1.3); Estimated Creatinine Clearance 53.8 mL/min (>60); Globulin 1.9 gm/dL (2.3-3.5); Glucose 94 mg/dL (74-106); Osmolality,Calculated 266 (275-295); Potassium 4.5 mMol/L (3.4-5.1); Sodium 132 mMol/L (136-145); Troponin I < 0.002 ng/mL (0.0-0.045); eGFR 56 See Note
[2024-05-04 02:19] LABS: Lipase 54 U/L (12-53)
--- NOTE | 2024-05-04 02:42 | PD.EDURI ---
Upper Respiratory Inf. RME/HPI General Chief Complaint: Flu Like Symptoms Stated Complaint: HEAD, NECK, SHOULDER PAIN, FLU POSITIVE Time Seen by Provider: 05/04/24 00:54 Arrival date/time: 05/04/24 00:29 64F with history of bipolar disorder, Valley Fever, HTN, and hypothyroidism presents to ED with 2 days of worsening cough, head, neck, and bilateral shoulder pain. This has been happening since she was diagnosed with flu about 3 weeks ago. Patient states she felt better after getting Toradol and the Baxter prescribed didn't work. Patient states prior to these past 2 days, patient had been better and better until it felt like she had the flu again. Patient saw PCP who gave Tamiflu, which patient has been taking w/o relief. Patient denies CP and SOB. Patient also states she's had Valley Fever 3 times before and this feels different. Limitations: no limitations Related Data Home Medications ?Medication ?Instructions ?Recorded ?Confirmed atorvastatin 10 mg tablet (Lipitor) 10 mg PO HS #0 tabs 05/21/16 12/23/20 metformin 500 mg tablet 500 mg PO BID 11/21/18 12/23/20 aripiprazole 15 mg tablet 7.5 mg PO QDAY 12/04/19 12/23/20 acyclovir 400 mg tablet 400 mg PO QDAY 10/23/20 12/23/20 amlodipine 5 mg tablet 5 mg PO QDAY 10/23/20 12/23/20 levothyroxine 112 mcg capsule 112 mcg PO QDAY 10/23/20 12/23/20 metoprolol succinate 50 mg 50 mg PO QDAY 10/23/20 12/23/20 tablet,extended release 24 hr oxybutynin chloride 10 mg 10 mg PO QDAY 10/23/20 12/23/20 tablet,extended release 24 hr topiramate 100 mg tablet 100 mg PO QDAY 10/23/20 12/23/20 Previous Rx's ?Medication ?Instructions ?Recorded metoclopramide HCl 10 mg tablet 10 mg PO Q6H PRN nausea and 04/11/20 (Reglan) vomiting #20 tabs meclizine 50 mg tablet (Antivert) 50 mg PO BID PRN dizziness #20 tabs 11/04/22 acetaminophen 500 mg capsule 500 mg PO Q6H PRN pain #30 caps 04/10/24 ibuprofen 600 mg tablet 600 mg PO Q8H PRN pain #20 tabs 04/10/24 guaifenesin 200 mg/5 mL oral liquid 400 mg (10 mL) PO Q6H PRN cough 04/18/24 #118 mL Allergies Allergy/AdvReac Type Severity Reaction Status Date / Time codeine Allergy Severe HIVES Verified 04/17/24 21:23 Penicillins Allergy Severe HIVES Verified 04/17/24 21:23 Review of Systems Review of Systems Systems Reviewed: All systems reviewed, normal except as documented Constitutional Constitutional: Reports system reviewed and no additional complaints, except as documented, Reports as per HPI, Denies fever(s) and Reports headache(s) ENT Ears, Nose, Mouth, and Throat: Reports as per HPI, Denies disequilibrium, Reports headache(s) and Reports neck pain Cardiovascular Cardiovascular: Reports system reviewed and no additional complaints, except as documented, Denies chest pain and Denies dyspnea Respiratory Respiratory: Reports system reviewed and no additional complaints, except as documented, Denies cough and Denies dyspnea Gastrointestinal Gastrointestinal: Reports system reviewed and no additional complaints, except as documented, Denies abdominal pain, Denies nausea and Denies vomiting Musculoskeletal Musculoskeletal: Reports as per HPI, Reports arthralgias and Reports neck pain Neurologic Neurologic: Reports system reviewed and no additional complaints, except as documented, Denies confusion, Denies disequilibrium and Reports headache(s) Psychiatric Psychiatric: Denies confusion Past Medical History Past Medical History NEUROLOGIC: Negative Neurological Disorders or Seizures CARDIAC: Positive Cardiac Disorders, Hypertension and Hypotension; Negative Congestive Heart Failure RESPIRATORY: Negative Chronic Obstructive Pulmonary Disease (COPD) or Asthma GASTROINTESTINAL: Positive Gastrointestinal Disorders and Gastrointestinal Bleed GENITOURINARY: Negative Genitourinary Disorders or Renal Disease MUSCULOSKELETAL: Negative Musculoskeletal Disorders ENDOCRINE: Positive Endocrine Disorders and Hypothyroidism; Negative Diabetes Mellitus Type 1 or Diabetes Mellitus Type 2 HEMATOLOGIC: Negative Blood Disorders or Sickle Cell Disease PSYCHO/SOCIAL: Positive Bipolar Disorder, Depression and Anxiety OTHER HISTORY: Positive Chicken Pox, Measles, Mumps and Rubella ([place] Measles); Negative Blood Transfusions, Blood Transfusion Reaction, Anesthesia Reactions or Cancer Family History FAMILY HISTORY: Positive Family Cancer; Negative Family Neurologic Problems, Family Psychiatric Problems, Family Respiratory Disorders, Family Cardiac Disorders, Family Gastrointestinal Problems, Family Surgery or Family Anesthesia Reaction Surgical History SURGICAL: Positive Ear Surgery, Eye Surgery, Nose Surgery, Gastric Bypass Surgery, Hysterectomy and Section Social History SMOKING STATUS: Never smoker SUBSTANCE USE: does not use ED Exam General Limitations: Present no limitations General appearance: Present alert and in no apparent distress Head Head exam: Present atraumatic Eye Eye exam: Present normal appearance, PERRL and EOMI ENT ENT exam: Present normal exam, normal oropharynx and mucous membranes moist Neck Neck exam: Present normal inspection, full ROM and trachea midline Chest Chest inspection: Present normal inspection and symmetric chest wall rise Respiratory Respiratory exam: Present normal lung sounds bilaterally Cardiovascular Cardiovascular exam: Present regular rate, normal rhythm and normal heart sounds Abdominal Exam Abdominal exam: Present soft and normal bowel sounds Extremities Exam Extremities exam: Present normal inspection and full ROM Back Exam Back exam: Present normal inspection and full ROM Neurological Exam Neurological exam: Present alert, oriented X3 and CN II-XII intact Psychiatric Psychiatric exam: Present normal affect and normal mood Skin Skin exam: Present warm, dry, intact and normal color Course Quality Measures none Orders Category Date Time Status Bedside COVID-19 Antigen Test NOW Care 05/04/24 00:53 Active Bedside Influenza A&B Antigen Test NOW Care 05/04/24 00:53 Completed EKG (ED ONLY) *Do not use* NOW Care 05/04/24 00:53 Completed EKG (ED Only) Stat Exams 05/04/24 00:53 Draft XR chest 1V portable Stat Exams 05/04/24 00:53 Taken CBC Stat Lab 05/04/24 01:04 Completed CMP [Comprehensive Metabolic Panel] Stat Lab 05/04/24 01:04 Completed Lipase Stat Lab 05/04/24 01:04 Completed RSV [Respiratory Syncytial Virus Ag] Stat Lab 05/04/24 02:08 Completed Troponin I Stat Lab 05/04/24 01:04 Completed Gabapentin [Neurontin] Med 05/04/24 03:02 Discontinued 300 mg PO X1 ONE Ketorolac Inj [Toradol Inj] Med 05/04/24 00:53 Discontinued 30 mg IM X1 ONE Ondansetron Odt [Zofran Odt] Med 05/04/24 01:06 Discontinued 4 mg PO X1 ONE oxyCODONE/APAP 5/325 [Percocet 5/325] Med 05/04/24 03:32 Discontinued 1 tab PO X1 ONE Vital Signs Vital signs: Vital Signs Temperature 97.8 F 05/04/24 00:41 Pulse Rate 73 05/04/24 00:41 Respiratory Rate 18 05/04/24 00:41 Blood Pressure 139/83 H 03/21/25 00:41 Pulse Oximetry (%) 98 05/04/24 00:41 Oxygen Delivery Method Room Air 05/04/24 00:41 O2 at 98% on RA and WNLs Upper Respiratory Infection MDM Narrative MDM Narrative:: 64F with history of bipolar disorder, Valley Fever, HTN, and hypothyroidism presents to ED with 2 days of worsening cough, head, neck, and bilateral shoulder pain. This has been happening since she was diagnosed with flu about 3 weeks ago. Patient states she felt better after getting Toradol and the Baxter prescribed didn't work. Patient states prior to these past 2 days, patient had been better and better until it felt like she had the flu again. Patient saw PCP who gave Tamiflu, which patient has been taking w/o relief. Patient denies CP and SOB. Patient also states she's had Valley Fever 3 times before and this feels different. Physical exam reveals clear ENT and lungs. Normal WOB. No ab tenderness (patient had episode of dry heaving in ED, but states this happens sometimes). Normal pupil response and EOM. No neck tenderness. ROM intact. Patient is afebrile, calm and alert. Wet CXR read unremarkable pending official report. EKG is sinus shakila of 50. CBC unremarkable. CMP mildly low Na, but similar to previous visit's. Lipase unremarkable. Swabs neg. Trop normal. Patient felt better after Toradol, but wanted to also get tested for RSV, which was also negative. Patient data External records reviewed:: [facility] previous records Clinical information provided by:: patient Social determinants that could affect healthcare access:: none Patient has the following chronic illnesses:: bipolar disorder, HTN, and hypothyroidism How is presenting disease/condition affected by chronic disease/condition?: no chronic disease Evaluation data The following diagnostics were reviewed and interpreted by me:: lab results, radiology exam(s) and EKG tracing(s) Lab and/or radiology exams considered but not ordered:: ordered Interpretation Summary: above Medications / Prescriptions Medications or Prescriptions considered but not ordered:: ordered Medication administrations:: Medication Administration History Discontinued Medications Gabapentin (Gabapentin 300 Mg Capsule) 300 mg PO X1 ONE Stop: 05/04/24 03:03 Ketorolac Tromethamine (Ketorolac Inj 60 Mg/2 Ml Vial) 30 mg IM X1 ONE Stop: 05/04/24 00:54 Last Admin: 05/04/24 01:16 Dose: 30 mg Documented By: CHARBEL Ondansetron HCl (Ondansetron Odt 4 Mg Tabrap) 4 mg PO X1 ONE; Protocol Stop: 05/04/24 01:07 Last Admin: 05/04/24 01:16 Dose: 4 mg Documented By: CHARBEL Oxycodone/Acetaminophen (Oxycodone/Apap 5/325 Tablet) 1 tab PO X1 ONE Stop: 05/04/24 03:33 above Consultations Consultation(s) initiated? (list below): No Diagnosis Upper Respiratory Differential Diagnosis: upper respiratory infection, croup, otitis media, sinusitis, viral infection, bronchitis, influenza, pharyngitis and other (PNA, ACS) Most likely diagnosis given after review of the tests above:: URI Admission Indicated Admission indicated?: not indicated Admission Request Was there a request for admission?: No Disposition Plan Disposition Plan: Discharge Discharge Attestation Discharge Attestation: The patient and all family members were given an opportunity to ask questions and understood the discharge instructions. Discharge instructions specifically effects, indications for sooner follow up or return to the emergency department, and the expected course of current diagnosis. Patient condition: Stable Discharge Plan Plan Patient Disposition: HOME (Self Care) Disposition Comment: Stable Prescriptions/Referrals Prescriptions/Med Rec: No Action metoprolol succinate 50 mg tablet extended release 24 hr 50 mg PO QDAY acyclovir 400 mg tablet 400 mg PO QDAY levothyroxine 112 mcg capsule 112 mcg PO QDAY topiramate 100 mg tablet 100 mg PO QDAY amlodipine 5 mg tablet 5 mg PO QDAY oxybutynin chloride 10 mg tablet extended release 24hr 10 mg PO QDAY atorvastatin [Lipitor] 10 MG tablet 10 mg PO HS Qty: 0 metformin 500 mg Tablet 500 mg PO BID aripiprazole 15 mg tablet 7.5 mg PO QDAY metoclopramide HCl [Reglan] 10 mg tablet 10 mg PO Q6H PRN (Reason: nausea and vomiting) Qty: 20 0RF meclizine [Antivert] 50 mg tablet 50 mg PO BID PRN (Reason: dizziness) Qty: 20 0RF guaifenesin 200 mg/5 mL liquid 400 mg PO Q6H PRN (Reason: cough) Qty: 118 0RF ibuprofen 600 mg tablet 600 mg PO Q8H PRN (Reason: pain) Qty: 20 0RF acetaminophen 500 mg capsule 500 mg PO Q6H PRN (Reason: pain) Qty: 30 0RF Referrals: Cameron Napier MD [Primary Care Provider] - In 1 week Problem List Clinical Impression: URI (upper respiratory infection), Joint pain Patient/Caregiver Discharge Instructions Education Materials: ED URI, Viral, No Abx (Adult) Additional Instructions: Please follow-up with PCP within 24-48 hours and return immediately if symptoms worsen. Ibuprofen/Tylenol can be used simultaneously for greater fever/pain control. Benadryl is good for cough, congestion, and sleep. If oxy does not work, ask PCP about other types of pain meds such as gabapetin and Cymbalta. Print Language: Afghan Stand Alone Forms: Patient Portal Info Letter PA/IMPLANT POLISHER Supervising Physician [place]/IMPLANT POLISHER Supervising Physician: Dr. Louis
[2024-05-04 03:19] LABS: Respiratory Syncytial Virus Ag Negative (Negative)
[2024-05-04] MEDS: oxyCODONE/APAP 5/325 TABLET 1 TAB PO (03:46)
[2024-05-04 03:55] VITALS: BP 148/90; PULSE 61; RESP 18; O2SAT 98
== END 2024-05-04 03:57 | disposition home or self-care (01) ==
PROVIDERS: Physician Assistant; Emergency Provider Emergency Medicine; PCP Internal Medicine
DX: J06.9 Acute upper respiratory infection, unspecified (principal); M25.512 Pain in left shoulder; M25.511 Pain in right shoulder; R51.9 Headache, unspecified; M54.2 Cervicalgia; R00.1 Bradycardia, unspecified; I10 Essential (primary) hypertension
CPT/HCPCS: 36415; 71045; 80053; 83690; 84484; 85025; 87400; 87634; 87811; 93005; 96372; 99283; J1885; Q0162; A9270

== ENCOUNTER → 2024-05-09 | Outpatient (CLI) | payer OTHER, SELFPAY ==
[2024-05-09 10:07] LABS: Coccid Serology, CF (UCD)* See Sep Rpt
[2024-05-09 10:41] LABS: Sed Rate (ESR) 4 mm/hr (0-30)
[2024-05-09 10:53] LABS: Influenza A Ag Negative; Influenza B Ag Negative; Respiratory Syncytial Virus Ag Negative (Negative)
[2024-05-09 12:14] LABS: C-Reactive Protein < 0.5 mg/dL (0.0-0.9); Thyroid Stimulating Hormone 0.16 uIU/mL (0.55-4.78)
[2024-05-10 11:34] LABS: T4 (Thyroxine) 8.6 mcg/dL (4.5-10.9)
[2024-05-16 11:18] LABS: EBV VCA Ab (IgM) <36.00 U/mL
[2024-05-17 07:15] LABS: ANA Screen, IFA POSITIVE (NEGATIVE); CMV Antibody (IgG) <0.60 U/mL; CMV Antibody (IgM) <30.00 AU/mL; DNA (ds) Antibody* 3 IU/mL; EBV Ab Interpretation PAST; T3,Total* 87 ng/dL (76-181)
== END | disposition home or self-care (01) ==
LOC: COPL 09:50
PROVIDERS: PCP Internal Medicine; Referring Provider Internal Medicine; Visit Provider Internal Medicine
DX: I10 Essential (primary) hypertension (principal); R53.82 Chronic fatigue, unspecified; M12.38 Palindromic rheumatism, other specified site
CPT/HCPCS: 36415; 84436; 84439; 84443; 84480; 85652; 86038; 86140; 86171; 86225; 86644; 86645; 86664; 86665; 87502; 87634

== ENCOUNTER 2024-05-26 07:13 | Emergency (ER) | payer OTHER, SELFPAY ==
[2024-05-26 07:13] VITALS: BMI 30.9
[2024-05-26 07:30] VITALS: BP 148/85; PULSE 94; RESP 19; TEMP 36.8; O2SAT 98; BMI 30.9
--- NOTE | 2024-05-26 07:33 | PD.EDRME ---
Rapid Medical Screening Exam RME Arrival date/time: 05/26/24 07:13 This is a 64-year-old female that comes in with complaints of chest pain shortness of breath. Patient states that she has been sick for over 9 weeks now. Patient was diagnosed with influenza AMB and was sick for approximately 9 weeks per patient. In the end of April patient states she started to feel better. Patient reports that she started having upper respiratory symptoms and cough again and she saw her primary provider Dr. Canales who is working her up for possible valley fever. This morning patient wakes up with diffuse chest pain and dizziness. Patient does have a history of diabetes, hyperlipidemia, high blood pressure, bipolar disorder, hypothyroidism and migraine headaches. Patient denies any cardiac history. Patient cannot denies any cardiac surgery. Patient reports history of a , cholecystectomy, shoulder surgery. I have greeted and performed a focused initial assessment of this patient. Initial appropriate labs ordered at this time. A comprehensive ED assessment and evaluation of the patient and analysis of all test and completion of medical decision making process will be conducted by additional ED provider. Chief Complaint: General Adult/Misc Complain Time Seen by Provider: 05/26/24 07:22 Vital signs: Vital Signs Temperature 98.2 F 05/26/24 07:30 Pulse Rate 94 05/26/24 07:30 Respiratory Rate 19 05/26/24 07:30 Blood Pressure 148/85 H 05/26/24 07:30 Pulse Oximetry (%) 98 05/26/24 07:30 Oxygen Delivery Method Room Air 05/26/24 07:30
--- NOTE | 2024-05-26 07:36 | EKG_ITS ---
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
--- NOTE | 2024-05-26 07:36 | XR_ITS ---
Exam: Chest PA, lateral 2 views Technique: Chest upright PA lateral 2 views Date and time of exam: 05/26/2024, 7:54 AM INDICATION: Cough COMPARISON: 05/04/2024 Findings: Normal heart size. No mediastinal adenopathy. No acute fracture No pulmonary edema or pneumonia. Impression: No active disease.
[2024-05-26 08:14] LABS: Basophils # (Auto) 0.1 Thou/mm3 (0.0-0.2); Basophils % (Auto) 1 % (0-2.5); Eosinophils # (Auto) 0.2 Thou/mm3 (0.0-0.5); Eosinophils % (Auto) 3 % (0-10); Hematocrit 37.9 % (36.0-46.0); Hemoglobin 12.9 g/dL (12.0-16.0); Immature Granulocytes % (Auto) 0 % (0-0); Immature Granulocytes Auto 0.02 Thou/mm3 (0.00-0.00); Lymphocytes % (Auto) 34 % (10-50); Mean Corpuscular Hemoglobin 30.7 pg (25.0-35.0); Mean Corpuscular Volume 90 fL (80-100); Monocytes # (Auto) 0.6 Thou/mm3 (0.0-0.8); Monocytes % (Auto) 10 % (0-12); Neutrophils # (Auto) 3.1 Thou/mm3 (1.8-7.7); Neutrophils % (Auto) 53 % (37-80); Nucleated Red Blood Cell % 0 /100 WBC (0); Platelet Count 293 Thou/mm3 (140-440); RDW Standard Deviation 42.4 fL (36.4-46.3); White Blood Count 5.9 Thou/mm3 (3.6-11.0)
[2024-05-26 08:27] LABS: B-Type Natriuretic Peptide < 20 pg/mL (0-100)
[2024-05-26 08:29] LABS: Alanine Aminotransferase 11 U/L (10-49); Albumin, Serum 4.5 gm/dL (3.4-4.8); Alkaline Phosphatase 87 U/L (46-116); Anion Gap 8 (7-16); Aspartate Amino Transferase 24 U/L (0-34); BUN/Creatinine Ratio 16 Ratio (12-20); Bilirubin,Total 0.3 mg/dL (0.3-1.2); Blood Urea Nitrogen 19 mg/dL (9-23); Carbon Dioxide 24.3 mMol/L (20.0-31.0); Chloride 98 mMol/L (98-107); Creatinine (Component) 1.2 mg/dL (0.6-1.3); Estimated Creatinine Clearance 48.3 mL/min (>60); Globulin 2.2 gm/dL (2.3-3.5); Glucose 97 mg/dL (74-106); Osmolality,Calculated 263 (275-295); Potassium 4.4 mMol/L (3.4-5.1); Sodium 130 mMol/L (136-145); Total Protein 6.7 gm/dL (5.7-8.2); Troponin I < 0.002 ng/mL (0.0-0.045); eGFR 50 See Note
--- NOTE | 2024-05-26 08:56 | PD.EDADULT ---
ED General RME/HPI General Chief complaint: General Adult/Misc Complain Stated complaint: SICK X9 WKS Time Seen by Provider: 05/26/24 07:22 Arrival date/time: 05/26/24 07:13 RME / HPI RME / HPI narrative: 05/26/24 07:13 This is a 64-year-old female that comes in with complaints of chest pain shortness of breath. Patient states that she has been sick for over 9 weeks now. Patient was diagnosed with influenza AMB and was sick for approximately 9 weeks per patient. In the end of April patient states she started to feel better. Patient reports that she started having upper respiratory symptoms and cough again and she saw her primary provider Dr. Canales who is working her up for possible valley fever. This morning patient wakes up with diffuse chest pain and dizziness. Patient does have a history of diabetes, hyperlipidemia, high blood pressure, bipolar disorder, hypothyroidism and migraine headaches. Patient denies any cardiac history. Patient cannot denies any cardiac surgery. Patient reports history of a , cholecystectomy, shoulder surgery. I have greeted and performed a focused initial assessment of this patient. Initial appropriate labs ordered at this time. A comprehensive ED assessment and evaluation of the patient and analysis of all test and completion of medical decision making process will be conducted by additional ED provider. Related Data Home Medications ?Medication ?Instructions ?Recorded ?Confirmed atorvastatin 10 mg tablet (Lipitor) 10 mg PO HS #0 tabs 05/21/16 12/23/20 metformin 500 mg tablet 500 mg PO BID 11/21/18 12/23/20 aripiprazole 15 mg tablet 7.5 mg PO QDAY 12/04/19 12/23/20 acyclovir 400 mg tablet 400 mg PO QDAY 10/23/20 12/23/20 amlodipine 5 mg tablet 5 mg PO QDAY 10/23/20 12/23/20 levothyroxine 112 mcg capsule 112 mcg PO QDAY 10/23/20 12/23/20 metoprolol succinate 50 mg 50 mg PO QDAY 10/23/20 12/23/20 tablet,extended release 24 hr oxybutynin chloride 10 mg 10 mg PO QDAY 10/23/20 12/23/20 tablet,extended release 24 hr topiramate 100 mg tablet 100 mg PO QDAY 10/23/20 12/23/20 Previous Rx's ?Medication ?Instructions ?Recorded metoclopramide HCl 10 mg tablet 10 mg PO Q6H PRN nausea and 04/11/20 (Reglan) vomiting #20 tabs meclizine 50 mg tablet (Antivert) 50 mg PO BID PRN dizziness #20 tabs 11/04/22 acetaminophen 500 mg capsule 500 mg PO Q6H PRN pain #30 caps 04/10/24 ibuprofen 600 mg tablet 600 mg PO Q8H PRN pain #20 tabs 04/10/24 guaifenesin 200 mg/5 mL oral liquid 400 mg (10 mL) PO Q6H PRN cough 04/18/24 #118 mL Allergies Allergy/AdvReac Type Severity Reaction Status Date / Time codeine Allergy Severe HIVES Verified 05/26/24 07:18 Penicillins Allergy Severe HIVES Verified 05/26/24 07:18 Course Orders Category Date Time Status EKG (ED ONLY) *Do not use* NOW Care 05/26/24 07:37 Completed EKG (ED Only) Stat Exams 05/26/24 07:36 Draft XR chest 2V Stat Exams 05/26/24 07:36 Completed BNP [B-Type Natriuretic Peptide] Stat Lab 05/26/24 07:49 Completed CBC Stat Lab 05/26/24 07:49 Completed Comprehensive Metabolic Panel Stat Lab 05/26/24 07:49 Completed Troponin I Stat Lab 05/26/24 07:49 Completed Vital Signs Vital signs: Vital Signs Temperature 98.2 F 05/26/24 07:30 Pulse Rate 94 05/26/24 07:30 Respiratory Rate 19 05/26/24 07:30 Blood Pressure 148/85 H 05/26/24 07:30 Pulse Oximetry (%) 98 05/26/24 07:30 Oxygen Delivery Method Room Air 05/26/24 07:30 Medical Decision Making Lab Data 05/26/24 07:49 05/26/24 07:49 Labs: Lab Results 05/26/24 Range/Units 07:49 WBC 5.9 (3.6-11.0) Thou/mm3 RBC 4.20 (4.00-5.20) Miln/mm3 Hgb 12.9 (12.0-16.0) g/dL Hct 37.9 (36.0-46.0) % MCV 90 (80-100) fL MCH 30.7 (25.0-35.0) pg MCHC 34.0 (31.0-37.0) g/dl RDW Std Deviation 42.4 (36.4-46.3) fL Plt Count 293 D (140-440) Thou/mm3 Neut % (Auto) 53 (37-80) % Lymph % (Auto) 34 (10-50) % Powell % (Auto) 10 (0-12) % Eos % (Auto) 3 (0-10) % Baso % (Auto) 1 (0-2.5) % Neut # (Auto) 3.1 (1.8-7.7) Thou/mm3 Lymph # (Auto) 2.0 (1.0-4.8) Thou/mm3 Powell # (Auto) 0.6 (0.0-0.8) Thou/mm3 Eos # (Auto) 0.2 (0.0-0.5) Thou/mm3 Baso # (Auto) 0.1 (0.0-0.2) Thou/mm3 Immature Gran # (Auto) 0.02 H (0.00-0.00) Thou/mm3 Absolute Nucleated RBC 0.00 (0.00-0.00) Thou/mm3 Immature Gran % 0 (0-0) % Nucleated RBC % 0 (0) /100 WBC Sodium 130 L (136-145) mMol/L Potassium 4.4 (3.4-5.1) mMol/L Chloride 98 (98-107) mMol/L Carbon Dioxide 24.3 (20.0-31.0) mMol/L Anion Gap 8 (7-16) BUN 19 (9-23) mg/dL Creatinine 1.2 (0.6-1.3) mg/dL Estim Creat Clear Calc 48.3 L (>60) mL/min eGFR 50 L (60 - ) See Note BUN/Creatinine Ratio 16 (12-20) Ratio Glucose 97 (74-106) mg/dL Calculated Osmolality 263 L (275-295) Calcium 9.0 (8.3-10.6) mg/dL Corrected Calcium 9.0 (8.5-10.1) mg/dL Total Bilirubin 0.3 (0.3-1.2) mg/dL AST 24 (0-34) U/L ALT 11 (10-49) U/L Alkaline Phosphatase 87 (46-116) U/L Troponin I < 0.002 (0.0-0.045) ng/mL B-Natriuretic Peptide < 20 (0-100) pg/mL Total Protein 6.7 (5.7-8.2) gm/dL Albumin 4.5 (3.4-4.8) gm/dL Globulin 2.2 L (2.3-3.5) gm/dL Albumin/Globulin Ratio 2.0 (1.2-2.2) Discharge Plan Prescriptions/Referrals Prescriptions/Med Rec: No Action metoprolol succinate 50 mg tablet extended release 24 hr 50 mg PO QDAY acyclovir 400 mg tablet 400 mg PO QDAY levothyroxine 112 mcg capsule 112 mcg PO QDAY topiramate 100 mg tablet 100 mg PO QDAY amlodipine 5 mg tablet 5 mg PO QDAY oxybutynin chloride 10 mg tablet extended release 24hr 10 mg PO QDAY atorvastatin [Lipitor] 10 MG tablet 10 mg PO HS Qty: 0 metformin 500 mg Tablet 500 mg PO BID aripiprazole 15 mg tablet 7.5 mg PO QDAY metoclopramide HCl [Reglan] 10 mg tablet 10 mg PO Q6H PRN (Reason: nausea and vomiting) Qty: 20 0RF meclizine [Antivert] 50 mg tablet 50 mg PO BID PRN (Reason: dizziness) Qty: 20 0RF guaifenesin 200 mg/5 mL liquid 400 mg PO Q6H PRN (Reason: cough) Qty: 118 0RF ibuprofen 600 mg tablet 600 mg PO Q8H PRN (Reason: pain) Qty: 20 0RF acetaminophen 500 mg capsule 500 mg PO Q6H PRN (Reason: pain) Qty: 30 0RF Referrals: Cameron Napier MD [Primary Care Provider] - In 1 week Patient/Caregiver Discharge Instructions Print Language: Eritrean
--- NOTE | 2024-05-26 08:58 | PD.EDCHEST ---
ED Chest Pain RME/HPI General Chief Complaint: General Adult/Misc Complain Stated Complaint: SICK X9 WKS Time Seen by Provider: 05/26/24 07:22 Arrival date/time: 05/26/24 07:13 RME / HPI RME / HPI narrative: 05/26/24 07:13 This is a 64-year-old female that comes in with complaints of chest pain shortness of breath. Patient states that she has been sick for over 9 weeks now. Patient was diagnosed with influenza AMB and was sick for approximately 9 weeks per patient. In the end of April patient states she started to feel better. Patient reports that she started having upper respiratory symptoms and cough again and she saw her primary provider Dr. Canales who is working her up for possible valley fever. This morning patient wakes up with diffuse chest pain and dizziness. Patient does have a history of diabetes, hyperlipidemia, high blood pressure, bipolar disorder, hypothyroidism and migraine headaches. Patient denies any cardiac history. Patient cannot denies any cardiac surgery. Patient reports history of a , cholecystectomy, shoulder surgery. I have greeted and performed a focused initial assessment of this patient. Initial appropriate labs ordered at this time. A comprehensive ED assessment and evaluation of the patient and analysis of all test and completion of medical decision making process will be conducted by additional ED provider. DR MATSERS MAIN ED EVALUATION: 64 year old female with history of diabetes, hyperlipidemia, high blood pressure, bipolar disorder, hyperthyroidism, and migraines was presented to the ER with complaints of migraine, sore throat, productive cough with thick yellow phlegm, and pain in the back/shoulders/upper arms/neck/ears/chest. Patient reports being sick for 9 weeks and is having difficulty sleeping due to her ongoing cough and pain. Patient states she has been diagnosed with influenza A&B in April but by the end of the month has started feeling better until recently. Patient claims she has seen her primary doctor, Dr. Napier, who provided a cough syrup but is no longer working. Related Data Home Medications ?Medication ?Instructions ?Recorded ?Confirmed atorvastatin 10 mg tablet (Lipitor) 10 mg PO HS #0 tabs 05/21/16 12/23/20 metformin 500 mg tablet 500 mg PO BID 11/21/18 12/23/20 aripiprazole 15 mg tablet 7.5 mg PO QDAY 12/04/19 12/23/20 acyclovir 400 mg tablet 400 mg PO QDAY 10/23/20 12/23/20 amlodipine 5 mg tablet 5 mg PO QDAY 10/23/20 12/23/20 levothyroxine 112 mcg capsule 112 mcg PO QDAY 10/23/20 12/23/20 metoprolol succinate 50 mg 50 mg PO QDAY 10/23/20 12/23/20 tablet,extended release 24 hr oxybutynin chloride 10 mg 10 mg PO QDAY 10/23/20 12/23/20 tablet,extended release 24 hr topiramate 100 mg tablet 100 mg PO QDAY 10/23/20 12/23/20 Previous Rx's ?Medication ?Instructions ?Recorded metoclopramide HCl 10 mg tablet 10 mg PO Q6H PRN nausea and 04/11/20 (Reglan) vomiting #20 tabs meclizine 50 mg tablet (Antivert) 50 mg PO BID PRN dizziness #20 tabs 11/04/22 acetaminophen 500 mg capsule 500 mg PO Q6H PRN pain #30 caps 04/10/24 ibuprofen 600 mg tablet 600 mg PO Q8H PRN pain #20 tabs 04/10/24 guaifenesin 200 mg/5 mL oral liquid 400 mg (10 mL) PO Q6H PRN cough 04/18/24 #118 mL dextromethorphan-guaifenesin 20 1 tab PO QID PRN cough #20 tabs 05/26/24 mg-400 mg tablet Allergies Allergy/AdvReac Type Severity Reaction Status Date / Time codeine Allergy Severe HIVES Verified 05/26/24 07:18 Penicillins Allergy Severe HIVES Verified 05/26/24 07:18 Review of Systems Review of Systems Systems Reviewed: All systems reviewed, normal except as documented Narrative Review of Systems: Gen: No fever, no chills, no weight loss EYES: No discharge, no visual changes, no pain HEENT: +ear pain, +congestion, +sore throat PULM: +shortness of breath, +cough, +congestion CV: +chest pain, no palpitations GI: +nausea, no vomiting, no diarrhea, no pain, +constipation : No frequency, no urgency, no dysuria Musc/skel: No joint pain, +back pain Skin: No rash Psyc: No hallucinations, no depression Heme/Lymph: No easy bleeding or bruising tendencies Neuro: No weakness, +headache Past Medical History Past Medical History CARDIAC: Positive Cardiac Disorders, Hypertension and Hypotension RESPIRATORY: Positive Asthma (mild but no longer) GASTROINTESTINAL: Positive Gastrointestinal Disorders and Gastrointestinal Bleed ENDOCRINE: Positive Endocrine Disorders and Hypothyroidism PSYCHO/SOCIAL: Positive Bipolar Disorder, Depression and Anxiety OTHER HISTORY: Positive Blood Transfusions (with own blood), Chicken Pox, Measles, Mumps and Rubella (Tajik Measles) Family History FAMILY HISTORY: Positive Family Cancer Surgical History SURGICAL: Positive Ear Surgery, Eye Surgery, Nose Surgery, Gastric Bypass Surgery (2017), Hysterectomy and Section Social History SMOKING STATUS: Never smoker SUBSTANCE USE: does not use ED Exam Narrative Physical exam: GENERAL APPEARANCE: alert and oriented x 4, well-developed, well-nourished, anxious appearance HEENT: Normocephalic, atraumatic; pupils equal, round, reactive to light; EOMI; mucous membranes pink, moist; oropharynx clear NECK: Supple LUNGS: CTABL; no wheezes, no rales, no rhonchi HEART: Regular rate, regular rhythm; normal S1, S2; no murmurs ABDOMEN: non distended; normal BS; soft, no tenderness, no guarding, no rebound; no masses, no organomegaly, no hernia BACK: no CVA tenderness EXTREMITIES: atraumatic; pitting edema NEUROLOGIC: awake; alert and oriented x4; cranial nerves II-XII grossly intact; no focal sensory or motor deficits PSYCHIATRIC: anxious SKIN: warm, dry, normal color; no rashes Course Quality Measures none Orders Category Date Time Status EKG (ED ONLY) *Do not use* NOW Care 05/26/24 07:37 Completed EKG (ED Only) Stat Exams 05/26/24 07:36 Draft XR chest 2V Stat Exams 05/26/24 07:36 Completed BNP [B-Type Natriuretic Peptide] Stat Lab 05/26/24 07:49 Completed CBC Stat Lab 05/26/24 07:49 Completed Comprehensive Metabolic Panel Stat Lab 05/26/24 07:49 Completed Troponin I Stat Lab 05/26/24 07:49 Completed Ketorolac Inj [Toradol Inj] Med 05/26/24 09:06 Discontinued 30 mg IM X1 ONE dexAMETHasone TAB [Decadron Tab] Med 05/26/24 09:30 Discontinued 4 mg PO X1 ONE guaiFENesin/DM [Robitussin Dm] Med 05/26/24 09:30 Discontinued 10 ml PO X1 ONE lorataDINE [Claritin] Med 05/26/24 09:30 Discontinued 10 mg PO X1 ONE Vital Signs Vital signs: Vital Signs Temperature 98.2 F 05/26/24 07:30 Pulse Rate 94 05/26/24 07:30 Respiratory Rate 19 05/26/24 07:30 Blood Pressure 148/85 H 05/26/24 07:30 Pulse Oximetry (%) 98 05/26/24 07:30 Oxygen Delivery Method Room Air 05/26/24 07:30 pulse oximetry: 98% on room air which is adequate. Chest Pain MDM Narrative MDM Narrative:: Iona Butcher am scribing for and in the presence of Dr. Masters Patient data External records reviewed:: [facility] previous records Clinical information provided by:: patient Social determinants that could affect healthcare access:: none Patient has the following chronic illnesses:: bipolar disorder with depression, hyperlipidemia, hypothyroidism, diabetes, high blood pressure How is presenting disease/condition affected by chronic disease/condition?: exacerbated by Evaluation data The following diagnostics were reviewed and interpreted by me:: lab results, radiology exam(s) and EKG tracing(s) (EKG#1: EKG at 0742 hours.Interpreted by me: sinus rhythm, rate 83, no acute ischemic changes) Lab and/or radiology exams considered but not ordered:: none Interpretation Summary: Ordering Physician: Philly Candelario NP Date of Service: 05/26/24 Procedure(s): XR chest 2V Accession Number(s): [id number] cc: Sky Thurman MD; Philly Candelario NP; Cameron Napier MD~ Exam: Chest PA, lateral 2 views Technique: Chest upright PA lateral 2 views Date and time of exam: 05/26/2024, 7:54 AM INDICATION: Cough COMPARISON: 05/04/2024 Findings: Normal heart size. No mediastinal adenopathy. No acute fracture No pulmonary edema or pneumonia. Impression: No active disease. Dictated By: Sky Thurman MD Signed By: <Electronically signed by Sky Thurman MD in OV> 05/26/24 0817 Medications / Prescriptions Medications or Prescriptions considered but not ordered:: none Medication administrations:: Medication Administration History Discontinued Medications Dexamethasone (Dexamethasone 4 Mg Tablet) 4 mg PO X1 ONE; Protocol Stop: 05/26/24 09:31 Last Admin: 05/26/24 10:11 Dose: 4 mg Documented By: BLANCA Guaifenesin/Dextromethorphan (Guaifenesin/Dm 10 Ml Udc) 10 ml PO X1 ONE; Protocol Stop: 05/26/24 09:31 Last Admin: 05/26/24 12:05 Dose: 10 ml Documented By: BLANCA Ketorolac Tromethamine (Ketorolac Inj 30 Mg/Ml Vial) 30 mg IM X1 ONE Stop: 05/26/24 09:07 Last Admin: 05/26/24 09:11 Dose: 30 mg Documented By: Loratadine (Loratadine 10 Mg Tablet) 10 mg PO X1 ONE Stop: 05/26/24 09:31 Last Admin: 05/26/24 10:11 Dose: 10 mg Documented By: BLANCA see above Consultations Consultation(s) initiated? (list below): No Diagnosis Chest Pain Differential Diagnosis: atypical chest pain, st elevation myocardial infarction, costochondritis, chest pain and other (viral illness) Most likely diagnosis given after review of the tests above:: Cough Admission Indicated Admission indicated?: not indicated Admission Request Was there a request for admission?: No Disposition Plan Disposition Plan: Discharge Discharge Attestation Discharge Attestation: The patient and all family members were given an opportunity to ask questions and understood the discharge instructions. Discharge instructions specifically effects, indications for sooner follow up or return to the emergency department, and the expected course of current diagnosis. Patient condition: Stable Discharge Plan Plan Patient Disposition: HOME (Self Care) Prescriptions/Referrals Prescriptions/Med Rec: New dextromethorphan-guaifenesin 20-400 mg tablet 1 tab PO QID PRN (Reason: cough) Qty: 20 0RF No Action metoprolol succinate 50 mg tablet extended release 24 hr 50 mg PO QDAY acyclovir 400 mg tablet 400 mg PO QDAY levothyroxine 112 mcg capsule 112 mcg PO QDAY topiramate 100 mg tablet 100 mg PO QDAY amlodipine 5 mg tablet 5 mg PO QDAY oxybutynin chloride 10 mg tablet extended release 24hr 10 mg PO QDAY atorvastatin [Lipitor] 10 MG tablet 10 mg PO HS Qty: 0 metformin 500 mg Tablet 500 mg PO BID aripiprazole 15 mg tablet 7.5 mg PO QDAY metoclopramide HCl [Reglan] 10 mg tablet 10 mg PO Q6H PRN (Reason: nausea and vomiting) Qty: 20 0RF meclizine [Antivert] 50 mg tablet 50 mg PO BID PRN (Reason: dizziness) Qty: 20 0RF guaifenesin 200 mg/5 mL liquid 400 mg PO Q6H PRN (Reason: cough) Qty: 118 0RF ibuprofen 600 mg tablet 600 mg PO Q8H PRN (Reason: pain) Qty: 20 0RF acetaminophen 500 mg capsule 500 mg PO Q6H PRN (Reason: pain) Qty: 30 0RF Referrals: Cameron Napier MD [Primary Care Provider] - In 1 week Problem List Clinical Impression: Cough Patient/Caregiver Discharge Instructions Education Materials: ED Viral Syndrome (Adult) Print Language: Cymraes Stand Alone Forms: Dana Award Info., Patient Portal Info Letter
[2024-05-26] MEDS: KETOROLAC INJ 30 MG/ML VIAL IM (09:11)
[2024-05-26 09:14] VITALS: BP 153/98; PULSE 89; RESP 18; TEMP 36.9; O2SAT 99
--- NOTE | 2024-05-26 09:16 | PC.NURSE ---
PT comes in from home due to worsening generalized weakness and generalized pain. Pt was positive for both influenza A&B 04/10/24, tested negative on 05/04/24, but has been sick this whole time and was advised by her primary to come to ED as oppose to waiting to be seen by primary later this week. Pt states headache has been worsening and seems to be more migraine like now, aches and pains all over body, and has gotten so weak that at home she can not walk with out assistance and at time has to help her by utilizing a wheelchair, this has all happened since coming down with the flu. Pt is on monitor, BP is elevated pt stated hx of HTN but also worse since being sick, other than extreme pain when moving, pt is not showing any s/s of distress. Pain medication administered per MD order
[2024-05-26 10:04] VITALS: BP 169/103; PULSE 85; RESP 19; TEMP 37.1; O2SAT 98
[2024-05-26] MEDS: dexAMETHasone 4 MG TABLET PO (10:11)
[2024-05-26] MEDS: lorataDINE 10 MG TABLET PO (10:11)
[2024-05-26] MEDS: guaiFENesin/DM 10 ML UDC PO (12:05)
[2024-05-26 12:32] VITALS: BP 147/93; PULSE 88; RESP 19; TEMP 36.4; O2SAT 99
== END 2024-05-26 13:05 | disposition home or self-care (01) ==
PROVIDERS: Nurse Practitioner Family; Emergency Provider Emergency Medicine; PCP Internal Medicine
DX: R05.9 Cough, unspecified (principal); E11.9 Type 2 diabetes mellitus without complications; F31.9 Bipolar disorder, unspecified; E03.9 Hypothyroidism, unspecified; R07.9 Chest pain, unspecified
CPT/HCPCS: 36415; 71046; 80053; 83880; 84484; 85025; 93005; 96372; 99283; J1885; J8540; A9270

== ENCOUNTER 2024-06-08 05:48 | Emergency (ER) | payer OTHER, SELFPAY ==
[2024-06-08 05:50] VITALS: BMI 33.5
[2024-06-08 06:28] VITALS: BP 148/93; PULSE 83; RESP 16; TEMP 36.6; O2SAT 99
--- NOTE | 2024-06-08 06:33 | XR_ITS ---
Examination: AP lateral chest 2 views Technique: Sitting AP lateral chest 2 views Exam date and time: June 08, 2024 0738 hrs. Comparison May 26, 2024 Indications: Acute chest pain today. Findings: Normal heart size Lungs are clear. The osseous structures are intact Impression: No active disease
--- NOTE | 2024-06-08 06:33 | EKG_ITS ---
[facility] Test Date: 2024-06-08 Pat Name: KELI MADRID Department: Room: - Gender: Female Toppiece Chopper: : 1960 Requested By: Lowell Monroe (STEPHANIE) Order Number: [id number] Reading MD: Lowell Monroe (PROCUREMENT MANAGER) Measurements Intervals [place] Rate: 77 P: 46 NM: 163 QRS: 30 QRSD: 81 T: 40 QT: 368 QTc: 418 Interpretive Statements SINUS RHYTHM Compared to ECG 05/26/2024 07:42:52 No significant changes /store/S0/[id number].pdf
--- NOTE | 2024-06-08 06:33 | PD.EDRME ---
Rapid Medical Screening Exam RME Arrival date/time: 06/08/24 05:48 64-year-old female presents to the emergency department today for complaints of auditory and visual hallucinations patient also reports chest pressure and difficulty sleeping Chief Complaint: General Adult/Misc Complain Time Seen by Provider: 06/08/24 06:16 Vital signs: Vital Signs Temperature 97.8 F 06/08/24 06:28 Pulse Rate 83 06/08/24 06:28 Respiratory Rate 16 06/08/24 06:28 Blood Pressure 148/93 H 06/08/24 06:28 Pulse Oximetry (%) 99 06/08/24 06:28 Oxygen Delivery Method Room Air 06/08/24 06:28
[2024-06-08 07:20] LABS: Basophils # (Auto) 0.1 Thou/mm3 (0.0-0.2); Basophils % (Auto) 1 % (0-2.5); Eosinophils # (Auto) 0.2 Thou/mm3 (0.0-0.5); Eosinophils % (Auto) 3 % (0-10); Hematocrit 38.1 % (36.0-46.0); Hemoglobin 13.3 g/dL (12.0-16.0); Immature Granulocytes % (Auto) 0 % (0-0); Immature Granulocytes Auto 0.02 Thou/mm3 (0.00-0.00); Lymphocytes # (Auto) 1.8 Thou/mm3 (1.0-4.8); Lymphocytes % (Auto) 26 % (10-50); Mean Corpuscular HGB Conc 34.9 g/dl (31.0-37.0); Mean Corpuscular Hemoglobin 31.1 pg (25.0-35.0); Mean Corpuscular Volume 89 fL (80-100); Monocytes # (Auto) 0.6 Thou/mm3 (0.0-0.8); Monocytes % (Auto) 8 % (0-12); Neutrophils # (Auto) 4.4 Thou/mm3 (1.8-7.7); Neutrophils % (Auto) 62 % (37-80); Nucleated Red Blood Cell % 0 /100 WBC (0); Platelet Count 251 Thou/mm3 (140-440); RDW Standard Deviation 39.5 fL (36.4-46.3); Red Blood Count 4.27 Miln/mm3 (4.00-5.20); White Blood Count 7.1 Thou/mm3 (3.6-11.0)
[2024-06-08 07:38] LABS: Alanine Aminotransferase 21 U/L (10-49); Albumin, Serum 4.3 gm/dL (3.4-4.8); Alkaline Phosphatase 81 U/L (46-116); Anion Gap 7 (7-16); Aspartate Amino Transferase 24 U/L (0-34); BUN/Creatinine Ratio 14 Ratio (12-20); Bilirubin,Total 0.4 mg/dL (0.3-1.2); Blood Urea Nitrogen 11 mg/dL (9-23); Carbon Dioxide 25.5 mMol/L (20.0-31.0); Chloride 95 mMol/L (98-107); Creatinine (Component) 0.8 mg/dL (0.6-1.3); Estimated Creatinine Clearance 75.5 mL/min (>60); Globulin 2.2 gm/dL (2.3-3.5); Glucose 96 mg/dL (74-106); Osmolality,Calculated 254 (275-295); Potassium 4.5 mMol/L (3.4-5.1); Sodium 127 mMol/L (136-145); Total Protein 6.5 gm/dL (5.7-8.2); Troponin I < 0.020 ng/mL (0.0-0.045); eGFR > 60 See Note
[2024-06-08 08:01] VITALS: BP 149/105; PULSE 80; RESP 19; TEMP 36.5; O2SAT 99
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
[2024-06-08 08:35] LABS: Alcohol, Urine Negative (Negative); Amphetamine/Methamp Scrn,U Negative (Negative); Barbiturate Screen,Urine Negative (Negative); Benzodiazepines Screen,Urine Negative (Negative); Benzoylecgonine Screen, Ur Negative (Negative); Fentanyl Screen,Urine Negative (Negative); Opiate Screen,Urine Negative (Negative); THC Screen,Urine Negative (Negative)
[2024-06-08 08:37] VITALS: BP 160/122; PULSE 71; RESP 15; TEMP 36.6; O2SAT 98
--- NOTE | 2024-06-08 08:45 | PC.NURSE ---
@0843- RN ATTEMPTED TO CALL PT'S , ALVARO, BUT CALL WENT STRAIGHT TO VOICEMAIL. @0845- SPOKE TO PT'S DAUGHTER, NAOMIE, OVER THE PHONE AND MADE AWARE OF PT'S FALL AND UPDATED REGARDING PT'S CONDITION.
[2024-06-08] MEDS: SODIUM CHLORIDE 0.9% 1000 ML 1,000 ML 999 ML IV (08:50)
--- NOTE | 2024-06-08 09:05 | PD.EDADULT ---
ED General RME/HPI General Chief complaint: General Adult/Misc Complain Stated complaint: GENERALIZED PAIN; UNABLE TO SLEEP Time Seen by Provider: 06/08/24 06:16 Arrival date/time: 06/08/24 05:48 RME / HPI RME / HPI narrative: 06/08/24 05:48 64-year-old female presents to the emergency department today for complaints of auditory and visual hallucinations patient also reports chest pressure and difficulty sleeping DR. MASTERS MAIN ED EVALUATION 64 year old female patient presents to the ED for complaint of difficulty sleeping due to pain. Patient reports she is in constant pain all the time mostly in her head/neck/upper back beginning 03/29/2024. States in the last 2 months she feels the pain is getting worse. Has consulted with PCP who reports because of her kidney function she only recommends she take Ibuprofen and Tylenol. States she has taken the medications without relief and says she is getting little to no sleep due to pain and feeling very tired all day. Patient mentioned in the past she has taken Flexeril which helps her muscles feel less tense but ran out. States she has requested a refill from PCP but is not filled yet. Patient mentioned she has consulted with [employer] Teacher in [place] who has planned to have labs performed in 2-3 weeks. Surgical hx includes: Gastric bypass, hysterectomy, , appendectomy, cholecystectomy, shoulder surgery. Related Data Home Medications ?Medication ?Instructions ?Recorded ?Confirmed atorvastatin 10 mg tablet (Lipitor) 10 mg PO HS #0 tabs 05/21/16 12/23/20 metformin 500 mg tablet 500 mg PO BID 11/21/18 12/23/20 aripiprazole 15 mg tablet 7.5 mg PO QDAY 12/04/19 12/23/20 acyclovir 400 mg tablet 400 mg PO QDAY 10/23/20 12/23/20 amlodipine 5 mg tablet 5 mg PO QDAY 10/23/20 12/23/20 levothyroxine 112 mcg capsule 112 mcg PO QDAY 10/23/20 12/23/20 metoprolol succinate 50 mg 50 mg PO QDAY 10/23/20 12/23/20 tablet,extended release 24 hr oxybutynin chloride 10 mg 10 mg PO QDAY 10/23/20 12/23/20 tablet,extended release 24 hr topiramate 100 mg tablet 100 mg PO QDAY 10/23/20 12/23/20 Previous Rx's ?Medication ?Instructions ?Recorded metoclopramide HCl 10 mg tablet 10 mg PO Q6H PRN nausea and 04/11/20 (Reglan) vomiting #20 tabs meclizine 50 mg tablet (Antivert) 50 mg PO BID PRN dizziness #20 tabs 11/04/22 acetaminophen 500 mg capsule 500 mg PO Q6H PRN pain #30 caps 04/10/24 ibuprofen 600 mg tablet 600 mg PO Q8H PRN pain #20 tabs 04/10/24 guaifenesin 200 mg/5 mL oral liquid 400 mg (10 mL) PO Q6H PRN cough 04/18/24 #118 mL dextromethorphan-guaifenesin 20 1 tab PO QID PRN cough #20 tabs 05/26/24 mg-400 mg tablet cyclobenzaprine 5 mg tablet 5 mg PO TID PRN muscle spasm #14 06/08/24 tabs oxycodone-acetaminophen 5 mg-325 1 tab PO Q6H PRN pain #10 tabs 06/08/24 mg tablet Allergies Allergy/AdvReac Type Severity Reaction Status Date / Time codeine Allergy Severe HIVES Verified 05/26/24 07:18 Penicillins Allergy Severe HIVES Verified 05/26/24 07:18 Review of Systems Review of Systems Narrative Review of Systems: GEN: No fever, no chills, +difficulty sleeping and feeling fatigued due to pain EYES: No discharge, no visual changes, no pain HEENT: No ear pain, no congestion, no sore throat PULM: No shortness of breath, no cough, no congestion CV: No chest pain, no palpitations GI: No nausea, no vomiting, no diarrhea, no pain, no constipation : No frequency, no urgency, no dysuria MUSC/SKEL: +generalized pain SKIN: No rash PSYCH: No hallucinations, no depression HEME/LYMPH: No easy bleeding or bruising tendencies NEURO: No weakness, +headache Past Medical History Past Medical History CARDIAC: Positive Cardiac Disorders, Hypertension and Hypotension RESPIRATORY: Positive Asthma GASTROINTESTINAL: Positive Gastrointestinal Disorders and Gastrointestinal Bleed ENDOCRINE: Positive Endocrine Disorders and Hypothyroidism PSYCHO/SOCIAL: Positive Bipolar Disorder, Depression and Anxiety OTHER HISTORY: Positive Blood Transfusions, Chicken Pox, Measles, Mumps and Rubella (Citizen [place] Measles) Family History FAMILY HISTORY: Positive Family Cancer Surgical History SURGICAL: Positive Ear Surgery, Eye Surgery, Nose Surgery, Gastric Bypass Surgery, Hysterectomy and Section Social History SMOKING STATUS: Never smoker SUBSTANCE USE: does not use ED Exam Narrative Physical exam: GENERAL APPEARANCE: alert and oriented x 4, well-developed, well-nourished HEENT: Normocephalic, atraumatic; pupils equal, round, reactive to light; EOMI; mucous membranes pink, moist; oropharynx clear NECK: Supple; FROM LUNGS: CTABL; no wheezes, no rales, no rhonchi HEART: Regular rate, regular rhythm; normal S1, S2; no murmurs ABDOMEN: non distended; normal BS; soft, no tenderness, no guarding, no rebound; no masses, no organomegaly, no hernia BACK: Trapezius muscles are tight bilaterally, no spinous process tenderness, no step-off deformity, no CVA tenderness EXTREMITIES: atraumatic; no edema NEUROLOGIC: awake; alert and oriented x4; cranial nerves II-XII grossly intact; no focal sensory or motor deficits PSYCHIATRIC: appropriate mood and affect SKIN: warm, dry, normal color; no rashes Course Quality Measures none Orders Category Date Time Status Consult Cycle Director NOW Care 06/08/24 07:19 Completed EKG (ED ONLY) *Do not use* NOW Care 06/08/24 06:33 Completed Insert IV NOW Care 06/08/24 07:[address] cervical spine wo con Stat Exams 06/08/24 10:[address] head/brain wo con Stat Exams 06/08/24 10:02 Completed EKG (ED Only) Stat Exams 06/08/24 06:33 Draft XR chest 2V Stat Exams 06/08/24 06:33 Completed Alcohol, Urine Stat Lab 06/08/24 07:41 Completed CBC Stat Lab 06/08/24 07:00 Completed Comprehensive Metabolic Panel Stat Lab 06/08/24 07:00 Completed Drug Screen,Urine Stat Lab 06/08/24 07:41 Completed Troponin I Stat Lab 06/08/24 07:00 Completed CYCLObenzaPRINE [Flexeril] Med 06/08/24 09:27 Discontinued 5 mg PO X1 ONE CYCLObenzaPRINE [Flexeril] Med 06/08/24 12:32 Discontinued 5 mg PO X1 ONE Sodium Chloride 0.9% 1000 ml [Ns] 1,000 ml Med 06/08/24 07:53 Discontinued IV 999 mls/hr oxyCODONE/APAP 5/325 [Percocet 5/325] Med 06/08/24 09:28 Discontinued 1 tab PO X1 ONE oxyCODONE/APAP 5/325 [Percocet 5/325] Med 06/08/24 12:32 Discontinued 1 tab PO X1 ONE Reevaluation(s) Reevaluation #1: Patient states she feels slightly better compared to initial presentation. Will order another dose of Percocet and Flexeril before going home. Additionally reports her has not been nice to her however states she feels safe enough to go home. We reviewed all the results, analysis, and treatment plans. Patient is amenable to discharge. Strict return precautions were outlined. Time: 12:32 Vital Signs Vital signs: Vital Signs Temperature 97.8 F 06/08/24 06:28 Pulse Rate 83 06/08/24 06:28 Respiratory Rate 16 06/08/24 06:28 Blood Pressure 148/93 H 06/08/24 06:28 Pulse Oximetry (%) 99 06/08/24 06:28 Oxygen Delivery Method Room Air 06/08/24 06:28 Pulse ox is 99% on room air which is adequate. Discharge Plan Plan Patient Disposition: HOME (Self Care) Prescriptions/Referrals Prescriptions/Med Rec: New cyclobenzaprine 5 mg tablet 5 mg PO TID PRN (Reason: muscle spasm) Qty: 14 0RF oxycodone-acetaminophen 5-325 mg tablet 1 tab PO Q6H MDD 5 PRN (Reason: pain) Qty: 10 0RF No Action metoprolol succinate 50 mg tablet extended release 24 hr 50 mg PO QDAY acyclovir 400 mg tablet 400 mg PO QDAY levothyroxine 112 mcg capsule 112 mcg PO QDAY topiramate 100 mg tablet 100 mg PO QDAY amlodipine 5 mg tablet 5 mg PO QDAY oxybutynin chloride 10 mg tablet extended release 24hr 10 mg PO QDAY atorvastatin [Lipitor] 10 MG tablet 10 mg PO HS Qty: 0 metformin 500 mg Tablet 500 mg PO BID aripiprazole 15 mg tablet 7.5 mg PO QDAY metoclopramide HCl [Reglan] 10 mg tablet 10 mg PO Q6H PRN (Reason: nausea and vomiting) Qty: 20 0RF meclizine [Antivert] 50 mg tablet 50 mg PO BID PRN (Reason: dizziness) Qty: 20 0RF guaifenesin 200 mg/5 mL liquid 400 mg PO Q6H PRN (Reason: cough) Qty: 118 0RF dextromethorphan-guaifenesin 20-400 mg tablet 1 tab PO QID PRN (Reason: cough) Qty: 20 0RF ibuprofen 600 mg tablet 600 mg PO Q8H PRN (Reason: pain) Qty: 20 0RF acetaminophen 500 mg capsule 500 mg PO Q6H PRN (Reason: pain) Qty: 30 0RF Referrals: Cameron Napier MD [Primary Care Provider] - In 1 week Problem List Clinical Impression: Generalized body aches, Spasm of both trapezius muscles, Neck pain Patient/Caregiver Discharge Instructions Education Materials: ED Back Spasm, No Trauma, ED Back and Neck Pain, General Print Language: Kazakh Stand Alone Forms: Dana Award Info., Patient Portal Info Letter MDM Patient Acuity High Acuity (complete MDM) Narrative: Leigha Butcher am scribing for and in the presence of Dr. Masters. Prior to my evaluation in ED room 16, patient had sustained a fall while out in the lobby and a code star was called overhead. Clinical Information Provided by: patient Medical Records reviewed [facility] (I reviewed ED visit on 05/26/2024 for cough ) Meds/Rx considered, not ordered None Labs/Rad/Tests considered, not ordered None Chronic Illness/Social Conditions which may negatively complicate care or outcome(s)-explain: None or not applicable EKG EKG Interpretation(s): EKG @ 06:37 am. Interpreted by me shows sinus rhythm, rate 77, normal axis, normal intervals, no evidence of acute ischemia. Labs Labs: Interpreted by me Lab(s) Interpretation(s): CBC and CMP within normal limits Imaging Imaging interpretation: Interpreted by me and none or see narrative above Imaging Interpretation(s): Ordering Physician: Fer (STEPHANIE)Lowell NP Date of Service: 06/08/24 Procedure(s): XR chest 2V Accession Number(s): [id number] cc: Fer BOYER)Lowell NP; Valeriano Porter MD; Cameron Napier MD~ Examination: AP lateral chest 2 views Technique: Sitting AP lateral chest 2 views Exam date and time: June 08, 2024 0738 hrs. Comparison May 26, 2024 Indications: Acute chest pain today. Findings: Normal heart size Lungs are clear. The osseous structures are intact Impression: No active disease Dictated By: Valeriano Porter MD Signed By: <Electronically signed by Valeriano Porter MD in OV>06/08/24 0821 Ordering Physician: Nicole Masters MD Date of Service: 06/08/24 Procedure(s): CT cervical spine [facility] Accession Number(s): [id number] cc: Valeriano Porter MD; Nicole Masters MD; Cameron Napier MD~ Examination: CT cervical spine without contrast 2-D sagittal reconstructions 2-D coronal reconstructions 3-D reconstructions. Exam date and time:June 08, 2024 1120 hours INDICATIONS: Ground-level fall today with injury to the neck, neck pain CTDI:vol (mGy) 7.97 DLP: (mGycm) 174 Technique: Multiple 2 mm axial sections of the cervical spine have been obtained. The coronal and sagittal reconstructions have been obtained. 3-D reconstructions have been obtained. Low dose protocols were performed. One or more of the following dose reduction techniques were used; automated exposure control, adjustment of the mA and/or KV according to patient size, use of iterative reconstruction technique. Findings: Axial sections demonstrate intact base of the skull. C1 exhibit satisfactory relationship to the odontoid. No acute cervical vertebral body fracture seen. Alignment posterior spinous processes satisfactory. Impression: No acute cervical fracture. Dictated By:Valeriano Porter MD Signed By:<Electronically signed by Valeriano Porter MD in OV>06/08/24 1210 Ordering Physician: Nicole Masters MD Date of Service: 06/08/24 Procedure(s): CT head/brain wo con Accession Number(s): [id number] cc: Valeriano Porter MD; Nicole Masters MD; Cameron Napier MD~ Examination: CT brain head without contrast. 2-D sagittal coronal reconstructions Date and time of exam:June 08, 2024 1130 hours Comparison April 15, 2024 INDICATIONS: Patient fell today with injury to the head, head pain CTDI: vol (mGy):47.7 DLP: (mGycm):931 Technique: Multiple CT axial sections of the brain have been obtained, 5 mm slice thickness. Contrast has not been administered. 2-D sagittal, coronal reconstructions have been obtained Low dose protocols were performed. One or more of the following dose reduction techniques were used; automated exposure control, adjustment of the mA and/or KV according to patient size, use of iterative reconstruction technique. Findings: No significant ventricular enlargement. Intra-axial or extra-axial hemorrhage density is not seen. No mass effect or midline shift Basal cisterns are not remarkable. Fourth ventricle is midline. Cranial vault intact. Impression: Negative for acute hemorrhage, mass effect or midline shift Dictated By:Valeriano Porter MD Signed By:<Electronically signed by Valeriano Porter MD in OV>06/08/24 1209 Medication Administration(s) Medication Administration History Discontinued Medications Cyclobenzaprine HCl (Cyclobenzaprine 5 Mg Tablet) 5 mg PO X1 ONE Stop: 06/08/24 09:28 Last Admin: 06/08/24 09:45 Dose: 5 mg Documented By: ROYA Cyclobenzaprine HCl (Cyclobenzaprine 5 Mg Tablet) 5 mg PO X1 ONE Stop: 06/08/24 12:33 Last Admin: 06/08/24 12:43 Dose: 5 mg Documented By: AGUEDA Sodium Chloride (Ns) 1,000 mls @ 999 mls/hr IV .Q1H1M ONE Stop: 06/08/24 08:53 Last Infusion: 06/08/24 12:38 Dose: Infused Documented By: Admin: 06/08/24 08:50 Dose: 999 mls/hr Documented By: ROYA Oxycodone/Acetaminophen (Oxycodone/Apap 5/325 Tablet) 1 tab PO X1 ONE Stop: 06/08/24 09:29 Last Admin: 06/08/24 09:44 Dose: 1 tab Documented By: ROYA Oxycodone/Acetaminophen (Oxycodone/Apap 5/325 Tablet) 1 tab PO X1 ONE Stop: 06/08/24 12:33 Last Admin: 06/08/24 12:43 Dose: 1 tab Documented By: AGUEDA See above Diagnosis Diagnoses ruled out: Generalized body aches Spasms of both trapezius muscles Neck pain
--- NOTE | 2024-06-08 09:28 | PC.NURSE ---
PATIENT RESTING IN BED. RESP EVEN UNLABORED. NO DISTRESS NOTED. I ASKED PT WHAT HAPPENED WHEN SHE FELL. PT STATES SHE THINKS SHE FELL ASLEEP. WITNESSES STATE PT LAID HERSELF ON THE FLOOR. VIDEO WAS REVIEWED BY SECURITY AND MANAGEMENT WHO ALSO STATE PT DID NOT LOOK LIKE SHE PASSED OUT OR TRIP, APPEARED TO LAY HERSELF ON THE FLOOR. SISTER RADHA CALLED UPSET THAT PT FELL, RADHA UPDATED ON PLAN OF CARE. INFORMED THAT PT DIDN'T HAVE ANY INJURIES PT IS DOING WELL. SHE IS PLACED IN RM 16 AND IS CURRENTLY BEING EVALUATED BY MD. SISTER FEELS PT IS NOT WELL, SHE HAS BEEN HAVING ISSUES CONTROLLING HER BLOOD PRESSURE. PT IS ON 5 DIFFERENT BP MEDS. PT STATES PRIMARY MD IS WORKING ON HER MEDICATION ADJUSTMENTS. PT ALSO HAS BEEN IN GENERALIZED PAIN SINCE MARCH SO SISTER IS CONCERNED WITH THAT. PT STATES HER PRIMARY MD REFERRED HER TO A SPECIALIST FOR HER PAIN. SISTER STATES THAT PTS IS NOT HER TAXI PROPRIETOR THAT HE IS A MAN . I INFORMED SISTER THAT I WILL HAVE CARGO SUPERVISOR LOOK INTO THIS CASE AND SEE IF THEY CAN PROVIDE ANY ASSISTANCE. SISTER VERBALIZED UNDERSTANDING
--- NOTE | 2024-06-08 09:40 | PC.CC ---
KASIEW to remain available. ASW consulted with real estate sales associate Lanise to provide her this update and Dr. Masters. [id number] ASW made telephone contact with patient's sister introduced self, role, and reason for call. Patient's sister presented very hostile over the telephone and stated multiple times that this hospital does nothing for the patient. She reports that the patient has been in and out of the hospital with physical pain and has not been kept overnight. Per sister, patient is on 5 different blood pressure medications and her blood pressure still has not been controlled. Patient has not been able to sleep due to the physical pain. Patient lives at home with her and sister reports that it should not be her helping patient as he is not suppose to be a caregiver. ASW explored with patient's sister what can the hospital do to help provide support to which the sister responded keep the patient in for observation and not be discharged immediately. ASW informed sister that this filing writer would relay the message to the team. ASWYris was consulted by STEPHANIE Monroe and real estate sales associate Lanise regarding making contact with patient's sister regarding patient.
[2024-06-08] MEDS: oxyCODONE/APAP 5/325 TABLET 1 TAB PO ×2 (09:44→12:43)
[2024-06-08] MEDS: CYCLObenzaPRINE 5 MG TABLET PO ×2 (09:45→12:43)
[2024-06-08 09:51] VITALS: BP 171/92
--- NOTE | 2024-06-08 10:02 | XR_ITS ---
Examination: CT brain head without contrast. 2-D sagittal coronal reconstructions Date and time of exam:June 08, 2024 1130 hours Comparison April 15, 2024 INDICATIONS: Patient fell today with injury to the head, head pain CTDI: vol (mGy):47.7 DLP: (mGycm):931 Technique: Multiple CT axial sections of the brain have been obtained, 5 mm slice thickness. Contrast has not been administered. 2-D sagittal, coronal reconstructions have been obtained Low dose protocols were performed. One or more of the following dose reduction techniques were used; automated exposure control, adjustment of the mA and/or KV according to patient size, use of iterative reconstruction technique. Findings: No significant ventricular enlargement. Intra-axial or extra-axial hemorrhage density is not seen. No mass effect or midline shift Basal cisterns are not remarkable. Fourth ventricle is midline. Cranial vault intact. Impression: Negative for acute hemorrhage, mass effect or midline shift
--- NOTE | 2024-06-08 10:02 | XR_ITS ---
Examination: CT cervical spine without contrast 2-D sagittal reconstructions 2-D coronal reconstructions 3-D reconstructions. Exam date and time:June 08, 2024 1120 hours INDICATIONS: Ground-level fall today with injury to the neck, neck pain CTDI:vol (mGy) 7.97 DLP: (mGycm) 174 Technique: Multiple 2 mm axial sections of the cervical spine have been obtained. The coronal and sagittal reconstructions have been obtained. 3-D reconstructions have been obtained. Low dose protocols were performed. One or more of the following dose reduction techniques were used; automated exposure control, adjustment of the mA and/or KV according to patient size, use of iterative reconstruction technique. Findings: Axial sections demonstrate intact base of the skull. C1 exhibit satisfactory relationship to the odontoid. No acute cervical vertebral body fracture seen. Alignment posterior spinous processes satisfactory. Impression: No acute cervical fracture.
[2024-06-08 10:04] VITALS: BP 184/95; PULSE 70; RESP 19; TEMP 36.7; O2SAT 100
[2024-06-08 11:05] VITALS: BP 150/93; PULSE 73; RESP 16; O2SAT 98
--- NOTE | 2024-06-08 11:13 | PC.CC ---
Patient is a 64 year-old female who presents to the hospital for generalized pain; unable to sleep. ASWYris made [id number] contact with patient. ASW introduced self, role, and reason for visit. Patient appeared alert and oriented to self, location, and situation. At bedside is patient's Sveta Hull whom patient provided consent to remain in the room during initial assessment. Patient was pleasant and engaged in initial assessment. Patient reports she lives her and he is her medical decision maker in the event she is unable to make her own medical decisions. ASW inquired if she wanted her added to be added to her demographics to which she responded yes. Her as next of Kin and her daughter, Abi Zuleta as person to notify. Patient notified human resources file clerk Cyndi to change patient's demographic information per patient request. Per patient, at home she ambulates independently but in the past she has used a wheelchair but not currently. Patient reports she is currently struggling with weakness and being dizzy and her requires some assistance with her ADLs. Sveta reports the patient has a shower chair she uses when she showers. Patient does not require oxygen at home. Patient receives primary care with Cameron Napier and uses [facility] for prescription medications. Upon discharge patient plans on returning home with her . Patient's reports he is her deliver driver. career placement services counselor to follow up with any discharge needs.
== END 2024-06-08 13:37 | disposition home or self-care (01) ==
PROVIDERS: Nurse Practitioner Primary Care; Emergency Provider Emergency Medicine; PCP Internal Medicine
DX: M62.830 Muscle spasm of back (principal); R07.9 Chest pain, unspecified; S09.90XA Unspecified injury of head, initial encounter; S19.9XXA Unspecified injury of neck, initial encounter; W18.30XA Fall on same level, unspecified, initial encounter; I10 Essential (primary) hypertension
CPT/HCPCS: 36415; 70450; 71046; 72125; 80053; 80307; 80320; 81001; 84484; 85025; 93005; 96360; 96361; 99284; J7030; A9270; G0480

== ENCOUNTER → 2024-06-26 | Outpatient (CLI) | payer OTHER, SELFPAY ==
[2024-06-26 08:36] LABS: Misc Send Out* See Sep Rpt
[2024-06-26 09:41] LABS: Basophils % (Auto) 1 % (0-2.5); Eosinophils # (Auto) 0.1 Thou/mm3 (0.0-0.5); Eosinophils % (Auto) 2 % (0-10); Hemoglobin 12.9 g/dL (12.0-16.0); Immature Granulocytes % (Auto) 0 % (0-0); Immature Granulocytes Auto 0.01 Thou/mm3 (0.00-0.00); Lymphocytes # (Auto) 1.5 Thou/mm3 (1.0-4.8); Lymphocytes % (Auto) 34 % (10-50); Mean Corpuscular HGB Conc 35.8 g/dl (31.0-37.0); Mean Corpuscular Volume 89 fL (80-100); Monocytes # (Auto) 0.4 Thou/mm3 (0.0-0.8); Monocytes % (Auto) 10 % (0-12); Neutrophils # (Auto) 2.3 Thou/mm3 (1.8-7.7); Neutrophils % (Auto) 53 % (37-80); Nucleated Red Blood Cell % 0 /100 WBC (0); Platelet Count 228 Thou/mm3 (140-440); Red Blood Count 4.03 Miln/mm3 (4.00-5.20); White Blood Count 4.3 Thou/mm3 (3.6-11.0)
[2024-06-26 10:12] LABS: Sed Rate (ESR) 11 mm/hr (0-30)
[2024-06-26 10:23] LABS: Folate 18.37 ng/mL (>5.38); Vitamin B12 1725 pg/mL (211-911); Vitamin D 25 Hydroxy Total 75.2 ng/mL (7.3-40.2)
[2024-06-26 10:27] LABS: Alanine Aminotransferase 7 U/L (10-49); Albumin, Serum 4.7 gm/dL (3.4-4.8); Albumin/Globulin Ratio 2.2 (1.2-2.2); Alkaline Phosphatase 80 U/L (46-116); Anion Gap 9 (7-16); Aspartate Amino Transferase 13 U/L (0-34); BUN/Creatinine Ratio 14 Ratio (12-20); Bilirubin,Total 0.7 mg/dL (0.3-1.2); Blood Urea Nitrogen 11 mg/dL (9-23); C-Reactive Protein < 0.5 mg/dL (0.0-0.9); Carbon Dioxide 25.6 mMol/L (20.0-31.0); Chloride 101 mMol/L (98-107); Creatinine (Component) 0.8 mg/dL (0.6-1.3); Free T4 (Free Thyroxine) 1.85 ng/dL (0.89-1.76); Globulin 2.1 gm/dL (2.3-3.5); Glucose 94 mg/dL (74-106); Osmolality,Calculated 271 (275-295); Sodium 136 mMol/L (136-145); Thyroid Stimulating Hormone 0.04 uIU/mL (0.55-4.78); Total Protein 6.8 gm/dL (5.7-8.2); eGFR > 60 See Note
[2024-06-30 13:49] LABS: Cardiolipin Ab (IgA) <2.0 APL-U/mL; Cardiolipin Ab (IgG) <2.0 GPL-U/mL; Sjogren's antibody (SS-A) <1.0 NEG AI (<1.0 NEGATIVE); Sm Antibody <1.0 NEG AI (<1.0 NEGATIVE)
[2024-07-02 07:33] LABS: Cardiolipin Ab (IgM) <2.0 MPL-U/mL; Complement Component C3* 135 mg/dL (83-193); Complement Component C4c* 30 mg/dL (15-57); DNA (ds) Antibody* 3 IU/mL; Scl-70 Antibody* <1.0 NEG AI (<1.0 NEGATIVE); Sjogren's Antibody (SS-B) <1.0 NEG AI (<1.0 NEGATIVE); Sm/RNP Antibody <1.0 NEG AI (<1.0 NEGATIVE); Thyroid Peroxidase Antibodies* 7 IU/mL (<9)
[2024-07-03 06:16] LABS: Vitamin B1 (Thiamine)* 7 nmol/L (8-30)
== END | disposition home or self-care (01) ==
LOC: COPL 07:44
PROVIDERS: PCP Internal Medicine; Referring Provider Internal Medicine; Visit Provider Internal Medicine
DX: B27.90 Infectious mononucleosis, unspecified without complication (principal); E03.9 Hypothyroidism, unspecified; E78.49 Other hyperlipidemia; F31.9 Bipolar disorder, unspecified; I10 Essential (primary) hypertension; J45.909 Unspecified asthma, uncomplicated; M25.50 Pain in unspecified joint; M79.18 Myalgia, other site; R51.9 Headache, unspecified; R53.83 Other fatigue; R76.8 Other specified abnormal immunological findings in serum; Z13.820 Encounter for screening for osteoporosis; Z78.0 Asymptomatic menopausal state; Z98.84 Bariatric surgery status
CPT/HCPCS: 36415; 80053; 82306; 82607; 82746; 84425; 84439; 84443; 85025; 85652; 86140; 86147; 86160; 86225; 86235; 86376; 86880

== ENCOUNTER → 2024-07-30 | Outpatient (CLI) | payer OTHER, SELFPAY ==
--- NOTE | 2024-07-30 14:30 | XR_ITS ---
Examination: Diagnostic digital mammography, unilateral, right Computer aided detection 3-D breast Tomosynthesis, unilateral Date and time of exam: July 30, 2024 1438 hours INDICATIONS: Mammogram September 13, 2023 5 mm oval mass 12:00 position right breast Technique: Nonmagnified MLO, CC views of the right breast have been obtained, reconstructed from 3-D Tomosynthesis images. R2 computer aided detection program utilized for evaluation of suspicious masses and/or abnormal calcifications. 3-D Tomosynthesis images obtained. Findings: The breast is heterogeneously dense, which may obscure small masses Stable focal asymmetry upper right breast spot compression MLO view Impression: BI-RADS category 2: Benign findings Return to yearly follow-up mammography
== END | disposition home or self-care (01) ==
LOC: CDIM 14:17
PROVIDERS: PCP Internal Medicine; Referring Provider Internal Medicine; Visit Provider Internal Medicine
DX: R92.331 Mammographic heterogeneous density, right breast (principal); N64.89 Other specified disorders of breast
CPT/HCPCS: 77061; 77065; G0279

== ENCOUNTER → 2024-09-27 | Outpatient (CLI) | payer OTHER, SELFPAY ==
--- NOTE | 2024-09-27 14:00 | XR_ITS ---
Examination: Ultrasound soft tissue neck TECHNIQUE: Grayscale sonographic images soft tissue neck Date and time: September 27, 2024 1426 hours INDICATIONS: Right neck lump beginning 5 months ago FINDINGS: Lymph node at the area concern in the right neck 12 x 5 x 12 mm IMPRESSION: Nonspecific lymph node at the area concern right neck Recommend 3-6 month follow-up ultrasound soft tissue neck
== END | disposition home or self-care (01) ==
LOC: CDIM 13:45
DX: R59.9 Enlarged lymph nodes, unspecified (principal)
CPT/HCPCS: 76536

== ENCOUNTER → 2024-11-02 | Outpatient (CLI) | payer OTHER, SELFPAY ==
[2024-11-02 08:51] LABS: Basophils # (Auto) 0.0 Thou/mm3 (0.0-0.2); Basophils % (Auto) 1 % (0-2.5); Eosinophils # (Auto) 0.0 Thou/mm3 (0.0-0.5); Eosinophils % (Auto) 1 % (0-10); Hematocrit 36.7 % (36.0-46.0); Hemoglobin 12.2 g/dL (12.0-16.0); Immature Granulocytes Auto 0.01 Thou/mm3 (0.00-0.00); Lymphocytes # (Auto) 0.6 Thou/mm3 (1.0-4.8); Lymphocytes % (Auto) 11 % (10-50); Mean Corpuscular HGB Conc 33.2 g/dl (31.0-37.0); Mean Corpuscular Hemoglobin 29.8 pg (25.0-35.0); Mean Corpuscular Volume 90 fL (80-100); Monocytes # (Auto) 0.4 Thou/mm3 (0.0-0.8); Monocytes % (Auto) 8 % (0-12); Neutrophils # (Auto) 4.3 Thou/mm3 (1.8-7.7); Neutrophils % (Auto) 81 % (37-80); Nucleated Red Blood Cell # 0.00 Thou/mm3 (0.00-0.00); Nucleated Red Blood Cell % 0 /100 WBC (0); Platelet Count 208 Thou/mm3 (140-440); RDW Standard Deviation 44.4 fL (36.4-46.3); Red Blood Count 4.10 Miln/mm3 (4.00-5.20); White Blood Count 5.4 Thou/mm3 (3.6-11.0)
[2024-11-02 09:14] LABS: Alanine Aminotransferase 16 U/L (10-49); Albumin, Serum 4.7 gm/dL (3.4-4.8); Albumin/Globulin Ratio 2.4 (1.2-2.2); Alkaline Phosphatase 96 U/L (46-116); Anion Gap 9 (7-16); Aspartate Amino Transferase 33 U/L (0-34); BUN/Creatinine Ratio 12 Ratio (12-20); Bilirubin,Total 0.9 mg/dL (0.3-1.2); Blood Urea Nitrogen 11 mg/dL (9-23); Calcium 9.4 mg/dL (8.3-10.6); Calcium (Corrected) 9.4 mg/dL (8.5-10.1); Carbon Dioxide 26.1 mMol/L (20.0-31.0); Cardiac Risk Estimate 3.4 RATIO (3.7-5.6); Chloride 101 mMol/L (98-107); Cholesterol 256 mg/dL (132-200); Creatinine (Component) 0.9 mg/dL (0.6-1.3); Globulin 2.0 gm/dL (2.3-3.5); Glucose 99 mg/dL (74-106); HDL Cholesterol 75 mg/dL (40-60); LDL Cholesterol,Calculated 153 mg/dL (0-130); Osmolality,Calculated 271 (275-295); Potassium 3.8 mMol/L (3.4-5.1); Sodium 136 mMol/L (136-145); Total Protein 6.7 gm/dL (5.7-8.2); Triglycerides 138 mg/dL (30-150); eGFR > 60 See Note
[2024-11-02 09:22] LABS: Collection Type, Urine Clean Catch
[2024-11-02 09:51] LABS: Bilirubin,Urine Negative (Negative); Blood,Urine Negative (Negative); Clarity,Urine Clear (Clear/Hazy); Color,Urine Lt-Yellow (Lt Yel-Yel); Glucose, Urine Negative (Negative); Ketones,Urine Negative (Negative); Leukocyte Esterase,Urine Negative (Negative); Nitrite,Urine Negative (Negative); PH,Urine 6.5 (5.0-7.0); Protein,Urine Negative (Neg - Trace); RBC,Urine 2 /hpf (0-3); Specific Gravity,Urine 1.025 (1.001-1.035); Squamous Epithelial Cell,Urine 2 /hpf (0-5); Urobilinogen,Urine Negative mg/dL (0.0-1.0); WBC,Urine 1 /hpf (0-5)
== END | disposition home or self-care (01) ==
PROVIDERS: PCP Internal Medicine; Referring Provider Internal Medicine; Visit Provider Internal Medicine
DX: I10 Essential (primary) hypertension (principal); E78.5 Hyperlipidemia, unspecified; Z12.11 Encounter for screening for malignant neoplasm of colon
CPT/HCPCS: 36415; 80053; 80061; 81001; 85025

== ENCOUNTER → 2024-11-09 | Outpatient (CLI) | payer OTHER, SELFPAY ==
[2024-11-09 15:11] LABS: OBS QC OK? Yes
[2024-11-09 17:10] LABS: Occult Blood, Stool Negative (Negative); Occult Blood, Stool #2 Negative (Negative); Occult Blood, Stool #3 Negative (Negative)
[2024-11-09 17:11] LABS: OBS Developer Lot # 4-24-551749; OBS Performed By BF
== END | disposition home or self-care (01) ==
LOC: SLDO 14:58
PROVIDERS: PCP Internal Medicine; Referring Provider Internal Medicine; Visit Provider Internal Medicine
DX: Z12.11 Encounter for screening for malignant neoplasm of colon (principal)
CPT/HCPCS: 82270

== ENCOUNTER 2024-11-28 14:17 | Emergency (ER) | payer OTHER, SELFPAY ==
[2024-11-28 14:18] VITALS: BMI 34.4
[2024-11-28 14:45] VITALS: BP 132/84; PULSE 77; RESP 20; TEMP 36.7; O2SAT 97
--- NOTE | 2024-11-28 15:12 | PD.EDHA ---
ED Headache RME/HPI General Chief Complaint: Headache Stated Complaint: C/O SINUS INFECTION, SEVERE SINUS PAIN Time Seen by Provider: 11/28/24 15:06 Arrival date/time: 11/28/24 14:17 64-year-old female presents to the emergency room today for complaints of sinus infection patient reports sinus pressure sinus pain sinus congestion ongoing x times last 2 to 3 days Limitations: no limitations Related Data Home Medications ?Medication ?Instructions ?Recorded ?Confirmed atorvastatin 10 mg tablet (Lipitor) 10 mg PO HS #0 tabs 05/21/16 12/23/20 metformin 500 mg tablet 500 mg PO BID 11/21/18 12/23/20 aripiprazole 15 mg tablet 7.5 mg PO QDAY 12/04/19 12/23/20 acyclovir 400 mg tablet 400 mg PO QDAY 10/23/20 12/23/20 amlodipine 5 mg tablet 5 mg PO QDAY 10/23/20 12/23/20 levothyroxine 112 mcg capsule 112 mcg PO QDAY 10/23/20 12/23/20 metoprolol succinate 50 mg 50 mg PO QDAY 10/23/20 12/23/20 tablet,extended release 24 hr oxybutynin chloride 10 mg 10 mg PO QDAY 10/23/20 12/23/20 tablet,extended release 24 hr topiramate 100 mg tablet 100 mg PO QDAY 10/23/20 12/23/20 Previous Rx's ?Medication ?Instructions ?Recorded metoclopramide HCl 10 mg tablet 10 mg PO Q6H PRN nausea and 04/11/20 (Reglan) vomiting #20 tabs meclizine 50 mg tablet (Antivert) 50 mg PO BID PRN dizziness #20 tabs 11/04/22 acetaminophen 500 mg capsule 500 mg PO Q6H PRN pain #30 caps 04/10/24 ibuprofen 600 mg tablet 600 mg PO Q8H PRN pain #20 tabs 04/10/24 guaifenesin 200 mg/5 mL oral liquid 400 mg (10 mL) PO Q6H PRN cough 04/18/24 #118 mL dextromethorphan-guaifenesin 20 1 tab PO QID PRN cough #20 tabs 05/26/24 mg-400 mg tablet cyclobenzaprine 5 mg tablet 5 mg PO TID PRN muscle spasm #14 06/08/24 tabs oxycodone-acetaminophen 5 mg-325 1 tab PO Q6H PRN pain #10 tabs 06/08/24 mg tablet doxycycline hyclate 100 mg capsule 100 mg PO BID 7 days #14 caps 11/28/24 prednisone 10 mg tablet 30 mg (3 x 10 mg) PO BID 3 days 11/28/24 #18 tabs Allergies Allergy/AdvReac Type Severity Reaction Status Date / Time codeine Allergy Severe HIVES Verified 11/28/24 14:20 Penicillins Allergy Severe HIVES Verified 11/28/24 14:20 Review of Systems Review of Systems Systems Reviewed: All systems reviewed, normal except as documented Constitutional Constitutional: Reports system reviewed and no additional complaints, except as documented, Denies fever(s) and Reports headache(s) Eyes Eyes: Reports system reviewed and no additional complaints, except as documented and Denies blurry vision ENT Ears, Nose, Mouth, and Throat: Reports system reviewed and no additional complaints, except as documented, Reports headache(s), Reports nasal congestion, Reports nasal discharge, Reports sinus pain and Reports sinus pressure Cardiovascular Cardiovascular: Reports system reviewed and no additional complaints, except as documented, Denies chest pain and Denies dyspnea Respiratory Respiratory: Reports system reviewed and no additional complaints, except as documented, Denies chest congestion, Denies cough and Denies dyspnea Gastrointestinal Gastrointestinal: Reports system reviewed and no additional complaints, except as documented and Denies abdominal pain Integumentary/Breasts Skin/Breast: Reports system reviewed and no additional complaints, except as documented and Denies rash Neurologic Neurologic: Reports system reviewed and no additional complaints, except as documented, Reports as per HPI and Reports headache(s) Past Medical History Past Medical History NEUROLOGIC: Negative Neurological Disorders or Seizures CARDIAC: Positive Cardiac Disorders, Hypertension and Hypotension; Negative Congestive Heart Failure RESPIRATORY: Positive Asthma; Negative Chronic Obstructive Pulmonary Disease (COPD) GASTROINTESTINAL: Positive Gastrointestinal Disorders and Gastrointestinal Bleed GENITOURINARY: Negative Genitourinary Disorders or Renal Disease MUSCULOSKELETAL: Negative Musculoskeletal Disorders ENDOCRINE: Positive Endocrine Disorders and Hypothyroidism; Negative Diabetes Mellitus Type 1 or Diabetes Mellitus Type 2 HEMATOLOGIC: Negative Blood Disorders or Sickle Cell Disease PSYCHO/SOCIAL: Positive Bipolar Disorder, Depression and Anxiety OTHER HISTORY: Positive Blood Transfusions, Chicken Pox, Measles, Mumps and Rubella (Swedish Measles); Negative Blood Transfusion Reaction, Anesthesia Reactions or Cancer Family History FAMILY HISTORY: Positive Family Cancer; Negative Family Neurologic Problems, Family Psychiatric Problems, Family Respiratory Disorders, Family Cardiac Disorders, Family Gastrointestinal Problems, Family Surgery or Family Anesthesia Reaction Surgical History SURGICAL: Positive Ear Surgery, Eye Surgery, Nose Surgery, Gastric Bypass Surgery, Hysterectomy and Section Social History SMOKING STATUS: Never smoker SUBSTANCE USE: does not use ED Exam General Limitations: Present no limitations General appearance: Present alert and in no apparent distress Head Head exam: Present atraumatic Eye Eye exam: Present normal appearance, PERRL and EOMI ENT ENT exam: Present normal exam, normal oropharynx and mucous membranes moist Expanded ENT Exam Nose exam: Present sinus tenderness Neck Neck exam: Present normal inspection, full ROM and trachea midline Chest Chest inspection: Present normal inspection and symmetric chest wall rise Respiratory Respiratory exam: Present normal lung sounds bilaterally Cardiovascular Cardiovascular exam: Present regular rate, normal rhythm and normal heart sounds Abdominal Exam Abdominal exam: Present soft and normal bowel sounds Extremities Exam Extremities exam: Present normal inspection and full ROM Back Exam Back exam: Present normal inspection and full ROM Neurological Exam Neurological exam: Present alert, oriented X3 and CN II-XII intact Psychiatric Psychiatric exam: Present normal affect and normal mood Skin Skin exam: Present warm, dry, intact and normal color Course Quality Measures none Vital Signs Vital signs: Vital Signs Temperature 98.0 F 11/28/24 14:45 Pulse Rate 77 11/28/24 14:45 Respiratory Rate 20 11/28/24 14:45 Blood Pressure 132/84 H 11/28/24 14:45 Pulse Oximetry (%) 97 11/28/24 14:45 Oxygen Delivery Method Room Air 11/28/24 14:45 O2 saturation 97% on room air within normal limits Headache MDM Narrative MDM Narrative:: 64-year-old female presents to the emergency room today for complaints of sinus infection patient reports sinus pressure sinus pain sinus congestion ongoing x times last 2 to 3 days On exam patient well-appearing patient does not appear look toxic no acute distress Lab work and imaging considered but not indicated Based on symptomatology and based on exam patient does have sinusitis Patient patient with course of antibiotics and pain medication Patient discharged home no distress follow primary care doctor next 24-48 hours for worsening symptoms return immediately Patient data External records reviewed:: [facility] previous records Clinical information provided by:: patient Social determinants that could affect healthcare access:: none Patient has the following chronic illnesses:: See history How is presenting disease/condition affected by chronic disease/condition?: uneffected by Evaluation data The following diagnostics were reviewed and interpreted by me:: other (specify) Lab and/or radiology exams considered but not ordered:: Considered not indicated Interpretation Summary: N/A Medications / Prescriptions Medications or Prescriptions considered but not ordered:: Given Medication administrations:: Given Consultations Consultation(s) initiated? (list below): No Diagnosis Differential diagnosis headache: migraine, tension headache, subarachnoid hemorrhage and sinusitis Most likely diagnosis given after review of the tests above:: Sinusitis Admission Indicated Admission indicated?: not indicated Admission Request Was there a request for admission?: No Disposition Plan Disposition Plan: Discharge Discharge Attestation Discharge Attestation: The patient and all family members were given an opportunity to ask questions and understood the discharge instructions. Discharge instructions specifically effects, indications for sooner follow up or return to the emergency department, and the expected course of current diagnosis. Patient condition: Stable Discharge Plan Plan Patient Disposition: HOME (Self Care) Discharge Disposition comment: Stable Prescriptions/Referrals Prescriptions/Med Rec: New prednisone 10 mg tablet 30 mg PO BID 3 Days Qty: 18 0RF doxycycline hyclate 100 mg capsule 100 mg PO BID 7 Days Qty: 14 0RF No Action metoprolol succinate 50 mg tablet extended release 24 hr 50 mg PO QDAY acyclovir 400 mg tablet 400 mg PO QDAY levothyroxine 112 mcg capsule 112 mcg PO QDAY topiramate 100 mg tablet 100 mg PO QDAY amlodipine 5 mg tablet 5 mg PO QDAY oxybutynin chloride 10 mg tablet extended release 24hr 10 mg PO QDAY atorvastatin [Lipitor] 10 MG tablet 10 mg PO HS Qty: 0 metformin 500 mg Tablet 500 mg PO BID aripiprazole 15 mg tablet 7.5 mg PO QDAY metoclopramide HCl [Reglan] 10 mg tablet 10 mg PO Q6H PRN (Reason: nausea and vomiting) Qty: 20 0RF meclizine [Antivert] 50 mg tablet 50 mg PO BID PRN (Reason: dizziness) Qty: 20 0RF guaifenesin 200 mg/5 mL liquid 400 mg PO Q6H PRN (Reason: cough) Qty: 118 0RF dextromethorphan-guaifenesin 20-400 mg tablet 1 tab PO QID PRN (Reason: cough) Qty: 20 0RF cyclobenzaprine 5 mg tablet 5 mg PO TID PRN (Reason: muscle spasm) Qty: 14 0RF oxycodone-acetaminophen 5-325 mg tablet 1 tab PO Q6H MDD 5 PRN (Reason: pain) Qty: 10 0RF ibuprofen 600 mg tablet 600 mg PO Q8H PRN (Reason: pain) Qty: 20 0RF acetaminophen 500 mg capsule 500 mg PO Q6H PRN (Reason: pain) Qty: 30 0RF Problem List Clinical Impression: Acute frontal sinusitis Patient/Caregiver Discharge Instructions Education Materials: Causes of Sinusitis Additional Instructions: Please follow up with your primary care doctor in the next 24-48hrs for any worsening symptoms return here immediately Print Language: Sinhala Stand Alone Forms: Dana Award Info., Patient Portal Info Letter PA/[employer] Supervising Physician PA/[employer] Supervising Physician: Dr. neville
== END 2024-11-28 15:22 | disposition home or self-care (01) ==
LOC: SERX 15:25
PROVIDERS: Emergency Provider Nurse Practitioner Primary Care; PCP Internal Medicine
DX: J01.10 Acute frontal sinusitis, unspecified (principal)
CPT/HCPCS: 99283

== ENCOUNTER → 2025-01-28 | Outpatient (CLI) | payer OTHER, SELFPAY ==
[2025-01-28 11:04] LABS: Collection Type, Urine Clean Catch
[2025-01-28 11:26] LABS: Basophils # (Auto) 0.1 Thou/mm3 (0.0-0.2); Basophils % (Auto) 1 % (0-2.5); Eosinophils # (Auto) 0.1 Thou/mm3 (0.0-0.5); Eosinophils % (Auto) 1 % (0-10); Hematocrit 37.2 % (36.0-46.0); Hemoglobin 12.1 g/dL (12.0-16.0); Immature Granulocytes Auto 0.02 Thou/mm3 (0.00-0.00); Lymphocytes # (Auto) 1.4 Thou/mm3 (1.0-4.8); Lymphocytes % (Auto) 23 % (10-50); Mean Corpuscular HGB Conc 32.5 g/dl (31.0-37.0); Mean Corpuscular Hemoglobin 30.6 pg (25.0-35.0); Mean Corpuscular Volume 94 fL (80-100); Monocytes # (Auto) 0.4 Thou/mm3 (0.0-0.8); Monocytes % (Auto) 7 % (0-12); Neutrophils # (Auto) 4.0 Thou/mm3 (1.8-7.7); Neutrophils % (Auto) 68 % (37-80); Nucleated Red Blood Cell # 0.00 Thou/mm3 (0.00-0.00); Nucleated Red Blood Cell % 0 /100 WBC (0); Platelet Count 277 Thou/mm3 (140-440); RDW Standard Deviation 50.4 fL (36.4-46.3); Red Blood Count 3.96 Miln/mm3 (4.00-5.20); White Blood Count 6.0 Thou/mm3 (3.6-11.0)
[2025-01-28 11:33] LABS: Bilirubin,Urine Negative (Negative); Blood,Urine Negative (Negative); Clarity,Urine Clear (Clear/Hazy); Color,Urine Lt-Yellow (Lt Yel-Yel); Glucose, Urine Negative (Negative); Ketones,Urine Negative (Negative); Leukocyte Esterase,Urine Negative (Negative); Nitrite,Urine Negative (Negative); PH,Urine 6.0 (5.0-7.0); Protein,Urine Trace (Neg - Trace); RBC,Urine 2 /hpf (0-3); Specific Gravity,Urine 1.029 (1.001-1.035); Squamous Epithelial Cell,Urine 1 /hpf (0-5); Urobilinogen,Urine Negative mg/dL (0.0-1.0); WBC,Urine < 1 /hpf (0-5)
[2025-01-28 12:32] LABS: Glucose Estimated Average 111 mg/dL (80-131); Hemoglobin A1C 5.5 % Hgb (4.8-6.0)
[2025-01-28 12:45] LABS: Alanine Aminotransferase 14 U/L (10-49); Albumin, Serum 5.2 gm/dL (3.4-4.8); Albumin/Globulin Ratio 2.3 (1.2-2.2); Alkaline Phosphatase 69 U/L (46-116); Anion Gap 13 (7-16); Aspartate Amino Transferase 27 U/L (0-34); BUN/Creatinine Ratio 22 Ratio (12-20); Bilirubin,Total 0.4 mg/dL (0.3-1.2); Blood Urea Nitrogen 20 mg/dL (9-23); Calcium 9.6 mg/dL (8.3-10.6); Calcium (Corrected) 9.6 mg/dL (8.5-10.1); Carbon Dioxide 21.1 mMol/L (20.0-31.0); Cardiac Risk Estimate 4.2 RATIO (3.7-5.6); Chloride 107 mMol/L (98-107); Cholesterol 263 mg/dL (132-200); Creatinine (Component) 0.9 mg/dL (0.6-1.3); Globulin 2.3 gm/dL (2.3-3.5); Glucose 99 mg/dL (74-106); HDL Cholesterol 62 mg/dL (40-60); LDL Cholesterol,Calculated 160 mg/dL (0-130); Osmolality,Calculated 283 (275-295); Potassium 4.2 mMol/L (3.4-5.1); Sodium 141 mMol/L (136-145); Thyroid Stimulating Hormone 0.26 uIU/mL (0.55-4.78); Total Protein 7.5 gm/dL (5.7-8.2); Triglycerides 204 mg/dL (30-150); Uric Acid 5.9 mg/dL (3.1-7.8); eGFR > 60 See Note
[2025-01-28 13:25] LABS: Vitamin B12 479 pg/mL (211-911); Vitamin D 25 Hydroxy Total 27.9 ng/mL (7.3-40.2)
== END | disposition home or self-care (01) ==
LOC: COPL 10:09
PROVIDERS: PCP Internal Medicine; Referring Provider Internal Medicine; Visit Provider Internal Medicine
DX: Z00.00 Encounter for general adult medical examination without abnormal findings (principal); I10 Essential (primary) hypertension; E78.5 Hyperlipidemia, unspecified
CPT/HCPCS: 36415; 80053; 80061; 81001; 82306; 82607; 83036; 84443; 84550; 85025